=== PATIENT | female | born 1965 | race Caucasian/White ===

== ENCOUNTER 2020-06-22 10:31 | Outpatient (REF) | payer OTHER, SELFPAY ==
[2020-06-22 11:07] LABS: MANUAL DIFF FLAG NO
[2020-06-22 11:13] LABS: Glucose Urine UA NEG (NEG); Leukocyte Esterase Urine NEG (NEG); Nitrite Urine NEG (NEG); Urine Blood NEG (NEG); Urine Ketones NEG (NEG); Urine Protein NEG (NEG-TRACE)
[2020-06-22 11:16] LABS: Appearance Urine CLEAR; Color Urine YELLOW
[2020-06-22 11:20] LABS: Estimated Average Glucose 97 mg/dL; Hemoglobin A1C 114.9276 umol/L
[2020-06-22 11:33] LABS: Alanine Aminotransferase 13 U/L (0-31); Albumin Level 4.2 g/dL (3.5-5.0); Alkaline Phosphatase 89 U/L (39-117); Anion Gap 10 (12-20); Aspartate Amino Transferase 16 U/L (5-31); Bilirubin Total 0.4 mg/dL (0.0-1.0); Blood Urea Nitrogen 16 mg/dL (9-16); Calcium 9.3 mg/dL (8.4-10.2); Carbon Dioxide 29 mmol/L (22-29); Chloride 104 mmol/L (96-108); Cholesterol 180 mg/dL; Estimated Glomerular Filt Rate 52; Glucose Fasting 90 mg/dL (60-99); HDL Cholesterol 50 mg/dL; LDL Cholesterol Calculated 113 mg/dl; Potassium 4.5 mmol/l (3.3-5.1); Sodium 138 mmol/L (135-145); Total Protein 6.8 g/dL (6.5-8.0); Triglycerides 85 mg/dL
[2020-06-22 11:40] LABS: Basophils Percent Auto 0.6 % (0-2); Eosinophils Absolute Auto 0.3 X10*3/uL (0.0-0.4); Eosinophils Percent Auto 5.4 % (0-4); Hematocrit 42.2 % (37-47); Hemoglobin 13.8 g/dl (12.0-16.0); Imm Gran Abs Auto 0.01 X10*3/uL (0.00-0.03); Imm Gran Pct Auto 0.2 % (0.0-0.4); Lymphocytes Absolute Auto 1.2 X10*3/uL (1.2-4.9); Lymphocytes Percent Auto 22.4 % (20-40); Mean Corpuscular HGB Conc 32.7 g/dl (31.0-35.0); Mean Corpuscular Volume 94.8 fL (80-98); Mean Platelet Volume 9.8 fL (9.4-12.3); Monocytes Absolute Auto 0.4 X10*3/uL (0.1-1.2); Monocytes Percent Auto 7.1 % (2-11); Neutrophils Absolute Auto 3.5 X10*3/uL (2.0-8.3); Neutrophils Percent Auto 64.3 % (45-73); Platelet Count 271 X10*3/uL (160-400); Red Blood Count 4.45 X10*6/uL (4.20-5.50); Red Cell Distribution Width 12.5 % (11.0-16.0); White Blood Count 5.4 X10*3/uL (4.8-10.8)
[2020-06-22 11:44] LABS: Bacteria Urine TRACE /LPF; RBC Urine 0 /HPF (0); Squamous Epithelial Cell Urine 1+ /LPF; WBC Urine 0 /HPF (0-4)
[2020-06-22 11:55] LABS: Thyroid Stimulating Hormone 1.69 mIU/mL (0.32-4.0)
== END 2020-06-22 10:32 | disposition home or self-care (01) ==
LOC: HO.LAB 10:31
PROVIDERS: PCP Physician Assistant; Visit Provider Physician Assistant
DX: Z13.1 Encounter for screening for diabetes mellitus (principal); Z13.220 Encounter for screening for lipoid disorders; Z13.29 Encounter for screening for other suspected endocrine disorder
CPT/HCPCS: 36415; 80053; 80061; 81001; 83036; 84443; 85025

== ENCOUNTER → 2020-09-16 12:30 | Outpatient (BNVA) | payer OTHER, SELFPAY | PROVIDERS: PCP Physician Assistant; Visit Provider Orthopaedic Surgery | DX: Q74.0 Other congenital malformations of upper limb(s), including shoulder girdle (principal) | CPT/HCPCS: 99212 ==

== ENCOUNTER 2020-10-24 15:00 | Outpatient (RCR) | payer OTHER, SELFPAY ==
--- NOTE | 2020-08-09 08:39 | MHC.PT.EP ---
[facility] [place] Office [place] Office [address] Yarely Brock [address] [phone] F: [phone] F: [phone] F: [phone] F: [phone] Physical Therapy Plan of Care Date of Evaluation: 08/05/20 Date of Surgery: NA Diagnosis: L SHOULDER TENDONITIS Assessment: Pt IS 55 YO F REFERRED TO PT FROM [facility] WITH L SHLDER TENDONITIS. PRESENTS WITH SIGNIFICANT LIMITATION IN L SHLDER/UE ROM AND STRENGTH. Pt REPORTS HX OF DEFORMITY L UE WITH SURGERY PER DR ROB BECERRA WHEN SHE WAS 7 YO. Pt REPORTS HAS ALWAYS HAD SOME ISSUES WITH LIMITED ROM AND STRENGTH WITH L UE BUT WAS FUNCTIONAL UNTIL ABOUT 8 MONTHS AGO WHEN SHE BEGAN HAVING INCREASING DIFFICULTY USING L UE WITH INCREASING PAIN. HAD MRI OF L SHLDER IN 2018 WHICH SHOWED SIGNIF DEGENERATION/ARTHRITIC CHANGES IN THE SHLDER AND SURROUNDING TISSUE..MAY BENEFIT FROM A NEW MRI AND/OR ORTHO CONSULT FOR ASSIST IN TREATMENT PLANNING AND GOAL ATTENUATION Frequency and Duration: The patient will be seen 2X/WK X 6 WKS Short Term Goals: 1. INCREASED AWARENESS SHLDER CARE AND POSTURE 2. CENTRALIZE [employer] Goals: 1. INCREASED L SHLDER ROM 10-20 DEGREES FLEX AND ABD 2. DECREASED L SHLDER PAIN AT LEAS 50% WITH ADLS 3. I HEP WITH DC EX PLAN Treatment Plan: Modalities to reduce pain, spasms and effusion. Manual therapy to restore motion and function. Therapeutic exercise to improve strength and flexibility. Neuromuscular re-education for posture and balance. Therapeutic activities to return to functional activities of daily living. Please sign and return to therapist. Thank you for your referral.
--- NOTE | 2020-11-16 14:56 | MHC.PT.DC ---
[facility] [place] Office [place] Office [place] Office [address] Yarely Brock [address] [phone] F: [phone] F: [phone] F: [phone] F: [phone] Physical Therapy Discharge Report Diagnosis: L SHOULDER TENDONITIS Date of Surgery: NA Date of Evaluation: 08/05/20 Date of Discharge: 09/14/21 Treatments to Date: 11 Cancellations to Date: 0 No Shows to Date: 0 Discharge Status: Physician Discontinued Tx Recommend MD Follow-up Discharge Summary: Pt completed 11 visits of skilled PT to address her left shoulder pain. However, minimal improvements were made. She had a consult w/ [facility] who recommended no aggressive ROM of the shoulder and she was going to possibly receive a 2nd opinion from an orthopedic surgeon out of [place]. Trialed 6 iontophoresis treatments w/ dexamethasone as well. D/C PT @ this time. Electronically signed by: Erin Gomes PT, DPT Please sign and return to therapist. Thank you for your referral.
== END 2020-12-04 08:02 | disposition other institution (70) ==
LOC: HO.PT 15:00
PROVIDERS: PCP Physician Assistant; Visit Provider Physician Assistant
DX: M75.92 Shoulder lesion, unspecified, left shoulder (principal)
CPT/HCPCS: 97014; 97033; 97110; 97140; 97163

== ENCOUNTER 2020-12-17 16:26 | Outpatient (REF) | payer OTHER, SELFPAY ==
--- NOTE | ~2020-12-17 | CT_ITS ---
EXAMINATION: CT SHOULDER, LEFT CLINICAL INFORMATION: Osteoarthritis of the left glenohumeral joint COMPARISON: 03/15/2018 TECHNIQUE: Multidetector volumetric imaging of the left shoulder is performed without IV contrast. Coronal and sagittal reformatted images are obtained and reviewed. This CT examination was performed using dose optimization techniques as appropriate, variously including the following: *Automated exposure control *Adjustment of mA and/or kV according to patient size (this includes techniques or standardized protocols for targeted exams where dose is matched to indication/reason for exam; i.e. extremities or head) *Use of iterative reconstruction technique DLP: 432 mGy-cm FINDINGS: No acute fracture or dislocation. There is superior subluxation of the humeral head in relation to the glenoid. There is narrowing of the subacromial space, with approximately 0.4 cm of space. There is flattening of the humeral head with prominent osteophyte formation. Narrowing of the glenohumeral joint space with near [id number] appearance. There is also flattening of the glenoid with prominent sclerosis. Prominent osteophytes are present. Intra-articular body at the superior joint space measuring 0.7 cm as seen on series 5 image 106. The acromioclavicular joint is well aligned. The visualized ribs are intact, likely chronic healed left lateral rib fractures. The scapula is intact. The study is not tailored for evaluation of the rotator cuff. There is atrophy of the rotator cuff musculature, particularly the supraspinatus and subscapularis. This can be seen in the setting of chronic rotator cuff tear. The visualized left lung is clear. CT/CT shoulder LT wo con IMPRESSION: Severe arthritic changes of the left glenohumeral joint. Superior subluxation of the joint with narrowing of the subacromial space. Likely chronic rotator cuff tear.
== END 2020-12-17 16:27 | disposition home or self-care (01) ==
LOC: HO.CT 16:26
PROVIDERS: Visit Provider Orthopaedic Surgery
DX: M19.012 Primary osteoarthritis, left shoulder (principal)
CPT/HCPCS: 73200

== ENCOUNTER 2021-11-04 16:12 | Outpatient (REF) | payer OTHER, SELFPAY ==
--- NOTE | ~2021-11-04 | MM_ITS ---
EXAMINATION: MM SCREENING DIGITAL BREAST TOMOSYNTHESIS, BILATERAL CLINICAL INFORMATION: Screening. Asymptomatic. The lifetime risk of breast cancer based on the Tyrer-Cuzick Model is 6%. COMPARISON: Mammography: 03/09/2019, 12/23/2017, 07/30/2016 TECHNIQUE: Digital breast tomosynthesis is performed in both the craniocaudal and mediolateral oblique views along with computer-aided detection (CAD). Synthesized 2D images are generated from the tomosynthesis. Technologist notes patient study limitations on left related to shoulder composition limiting positioning on left MLO view. FINDINGS: The breasts are almost entirely fatty (ACR BI-RADS breast composition Category a). Background stromal and fibroglandular densities are similar to prior studies. No developing density or interval mass or architectural abnormality. No abnormal calcifications. No significant changes. MM/MM tomosynthesis screening BI IMPRESSION: No mammographic evidence of malignancy. Patient study limitations. ASSESSMENT: BI-RADS 2: Benign RECOMMENDATION: Routine annual mammography screening. This patient's information was entered into a reminder system with a target due date for their next mammogram.
== END 2021-11-04 16:13 | disposition home or self-care (01) ==
LOC: HO.MAMMO 16:12
PROVIDERS: Visit Provider Physician Assistant
DX: Z12.31 Encounter for screening mammogram for malignant neoplasm of breast (principal)
CPT/HCPCS: 77063; 77067

== ENCOUNTER 2021-12-20 08:53 | Outpatient (REF) | payer OTHER, SELFPAY ==
[2021-12-20 10:18] LABS: Hematocrit 42.7 % (37.0-47.0); Hemoglobin 13.9 g/dl (12.0-16.0); Mean Corpuscular HGB Conc 32.6 g/dl (31.0-35.0); Mean Corpuscular Hemoglobin 30.4 pg (27.0-33.0); Mean Corpuscular Volume 93.4 fL (80.0-98.0); Mean Platelet Volume 9.9 fL (9.4-12.3); Platelet Count 277 X10*3/uL (160-400); Red Blood Count 4.57 X10*6/uL (4.20-5.50); Red Cell Distribution Width 13.2 % (11.0-16.0); White Blood Count 6.3 X10*3/uL (4.8-10.8)
[2021-12-20 10:29] LABS: Estimated Average Glucose 103 mg/dL; Hemoglobin A1C 127.7709 umol/L; Hemoglobin A1c % 5.2 %
[2021-12-20 10:32] LABS: Alanine Aminotransferase 17 U/L (0-31); Alkaline Phosphatase 89 U/L (39-117); Anion Gap 12 (12-20); Aspartate Amino Transferase 16 U/L (5-31); Bilirubin Total 0.4 mg/dL (0.0-1.0); Blood Urea Nitrogen 14 mg/dL (9-16); Calcium 9.5 mg/dL (8.4-10.2); Carbon Dioxide 26 mmol/L (22-29); Chloride 108 mmol/L (96-108); Cholesterol 169 mg/dL; Estimated Glomerular Filt Rate 51; Glucose Fasting 100 mg/dL (60-99); HDL Cholesterol 48 mg/dL; LDL Cholesterol Calculated 107 mg/dl; Potassium 5.2 mmol/L (3.3-5.1); Sodium 141 mmol/L (135-145); Total Protein 6.7 g/dL (6.5-8.0); Triglycerides 71 mg/dL
[2021-12-20 10:53] LABS: TSH reflex Free T4 2.41 uIU/mL (0.32-4.0)
== END 2021-12-20 08:54 | disposition home or self-care (01) ==
LOC: HO.LAB 08:53
PROVIDERS: PCP Physician Assistant; Visit Provider Physician Assistant
DX: E78.2 Mixed hyperlipidemia (principal); E66.09 Other obesity due to excess calories; Z68.35 Body mass index [BMI] 35.0-35.9, adult; Z78.9 Other specified health status
CPT/HCPCS: 36415; 80053; 80061; 83036; 84443; 85027; 86787

== ENCOUNTER 2022-05-05 16:04 | Outpatient (REF) | payer OTHER, SELFPAY ==
[2022-05-05 16:55] LABS: Blood Urea Nitrogen 11 mg/dL (9-16); Estimated Glomerular Filt Rate > 60
== END 2022-05-05 16:05 | disposition home or self-care (01) ==
LOC: HO.LAB 16:04
PROVIDERS: PCP Physician Assistant; Visit Provider Physician Assistant
DX: Z01.812 Encounter for preprocedural laboratory examination (principal)
CPT/HCPCS: 36415; 82565; 84520

== ENCOUNTER 2022-05-07 15:47 | Outpatient (REF) | payer OTHER, SELFPAY ==
--- NOTE | ~2022-05-07 | CT_ITS ---
EXAMINATION: CT SOFT TISSUE NECK WITH CONTRAST CLINICAL INFORMATION: 57-year-old with feeling of something stuck in throat. COMPARISON: None TECHNIQUE: Following the intravenous administration of 60 mL of Omnipaque 350 intravenous contrast, helical imaging was performed in the axial plane with generation of coronal and sagittal reformatted images. This CT examination was performed using dose optimization techniques as appropriate, variously including the following: *Automated exposure control *Adjustment of mA and/or kV according to patient size (this includes techniques or standardized protocols for targeted exams where dose is matched to indication/reason for exam; i.e. extremities or head) *Use of iterative reconstruction technique DLP: 330 mGy-cm Skull Base: The bony skull base and visualized calvarium appear grossly intact.?Limited assessment of the visualized intracranial and orbital soft tissue structures is unrevealing.?The mastoids and middle ear cavities are unopacified. There is near-complete opacification of the right maxillary sinus with evidence of a previous right-sided medial maxillary fenestration which appears patent. Suprahyoid Neck: Nasopharynx, retropharynx, cattle shipper, and parapharyngeal spaces appear within normal limits. The major salivary glands are normal in morphology and attenuation. The oropharynx is smoothly contoured. The oral cavity and oropharynx appear to be coated with hyperdense material, consistent with ingested barium paste. The oral tongue, base of the tongue and floor of the mouth structures are symmetric and intact and enhance normally. Scattered small, normal-sized lymph nodes are seen in the submandibular and submental spaces and both IJ chains. Infrahyoid Neck: The vallecula, epiglottis, hypopharynx, and larynx appear within normal limits. The thyroid gland enhances normally. The tracheoesophageal grooves and retropharyngeal soft tissues appear unremarkable. There is some hyperdense material within the esophagus, consistent with the presence of ingested barium paste. No lymphadenopathy. A few nonenlarged lymph nodes are seen at level 4 and level 5B on the left. Vascular: There is normal opacification of the major arterial and venous structures in the neck. There is minimal calcified plaque at both carotid bulbs. Upper Chest: The visualized lung parenchyma and mediastinum are grossly unremarkable. Skeletal: Cervical DDD and spondylosis noted at C5-C6 and C6-C7. Multilevel cervical facet arthropathy noted. Degenerative changes at the left glenohumeral joint with cephalad subluxation of the left humeral head suggesting a left-sided rotator cuff tear. Other Comments: None. CT/CT soft tissue neck w con IMPRESSION: 1. No mass lesions or lymphadenopathy seen throughout the neck. 2. Barium EZ-paste is present throughout the oral cavity, oropharynx and esophagus which limits the evaluation for foreign bodies in these regions due to the uneven distribution of the barium material and the potential to mask hyperdense foreign bodies. Within these limitations, no radiopaque foreign bodies are seen throughout the aerodigestive tract. 3. Near-complete opacification of the right maxillary sinus with evidence of a previous right medial maxillary wall fenestration. 4. Severe degenerative change at the left glenohumeral joint with cephalad humeral head subluxation suggesting a significant left-sided rotator cuff tear. 5. Cervical degenerative changes.
[2022-05-07] MEDS: iohexoL 350 MG/ML 100 ML INFUS..BTL IV (16:40)
== END 2022-05-07 15:48 | disposition home or self-care (01) ==
LOC: HO.CT 15:47
PROVIDERS: PCP Physician Assistant; Visit Provider Otolaryngology
DX: R09.89 Other specified symptoms and signs involving the circulatory and respiratory systems (principal)
CPT/HCPCS: 70491; Q9967

== ENCOUNTER 2022-09-22 16:36 | Outpatient (REF) | payer OTHER, SELFPAY ==
[2022-09-22 18:01] LABS: Blood Urea Nitrogen 18 mg/dL (9-16); Estimated Glomerular Filt Rate > 60
== END 2022-09-22 16:37 | disposition home or self-care (01) ==
LOC: HO.LAB 16:36
PROVIDERS: PCP Physician Assistant; Visit Provider Otolaryngology
DX: Z01.818 Encounter for other preprocedural examination (principal)
CPT/HCPCS: 36415; 82565; 84520

== ENCOUNTER 2022-09-23 15:58 | Outpatient (REF) | payer OTHER, SELFPAY ==
--- NOTE | ~2022-09-23 | CT_ITS ---
EXAMINATION: CT SOFT TISSUE NECK WITH CONTRAST CLINICAL INFORMATION: Feeling foreign body of throat. COMPARISON: None TECHNIQUE: Following the administration of 100 mL of Omnipaque 300 intravenous contrast, helical imaging was performed in the axial plane with generation of coronal and sagittal reformatted images. This CT examination was performed using dose optimization techniques as appropriate, variously including the following: *Automated exposure control *Adjustment of mA and/or kV according to patient size (this includes techniques or standardized protocols for targeted exams where dose is matched to indication/reason for exam; i.e. extremities or head) *Use of iterative reconstruction technique DLP: 315 mGy-cm FINDINGS: The nasopharynx appears normal. There is no retropharyngeal adenopathy or collection. The pharyngeal and laryngeal contours appear normal. The vocal folds are symmetric. No foreign body is seen. There is no oral cavity lesion. The maxilla and mandible are edentulous. The parotid and submandibular glands appear normal. No enlarged cervical chain lymph nodes are seen. The thyroid gland appears normal. The major neck vessels are normally opacified. There is no consolidation in the upper lungs. No acute intracranial abnormality is seen. There is chronic complete opacification of the right maxillary sinus with partial atelectasis. The mastoids are clear. Multilevel degenerative changes are seen within the spine. There is mild to moderate spinal canal stenosis at C5-C6. Prominent anterior endplate osteophytes are seen at C6-C7. CT/CT soft tissue neck w IV con IMPRESSION: No neck mass or suspicious lymphadenopathy identified. No foreign body identified. Chronic opacification of the right maxillary sinus with partial atelectasis.
[2022-09-23] MEDS: iohexoL 350 MG/ML 100 ML INFUS..BTL IV (17:02)
== END 2022-09-23 15:59 | disposition home or self-care (01) ==
LOC: HO.CT 15:58
PROVIDERS: PCP Physician Assistant; Visit Provider Otolaryngology
DX: R09.89 Other specified symptoms and signs involving the circulatory and respiratory systems (principal)
CPT/HCPCS: 70491; Q9967

== ENCOUNTER 2023-05-04 14:27 | Outpatient (AMB) | payer OTHER, SELFPAY ==
[2023-05-04 14:28] VITALS: BP 136/74; PULSE 86; O2SAT 96
--- NOTE | 2023-05-04 14:28 | MHC.PC.OV ---
Vital Signs 05/04/23 14:28 Height 5 ft 5 in BP 136/74 Blood Pressure Location Rt brachial Position Sitting Pulse 86 Pulse Source Pulse Oximeter Pulse Oximetry (%) 96 Oxygen Delivery Method Room Air Intake Visit Reasons: Medication Follow Up Digital Data Analyst Required: No Allergies No Known Allergies Allergy (Verified 05/04/23 14:34) Tobacco use date assessed: 05/04/23 Dental Screening Dental Screen Date: 05/04/23 Did you have a dental visit in the last 12 months?: Yes Did you have a dental problem in the last 6 months where you did not have access to dental care?: No HPI HPI Comments History of Present Illness Details Patient is a 58 y/o, Patient has a pmhx significant for RADHA, HLD, 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 Patient of Luis Cabrera last seen 2 years ago presents today for follow-up. Patient states left shoulder pain for couple years with worsening left deltoid muscle tenderness. Patient reports unable to lift left arm overhead and has very limited range of motion.Pervious CT showed chronic rotator cuff tear. Patient previously seen by Dr. Soto in 2020 orthopedic for history of left shoulder anomaly status post pediatric surgery. Review of the notes patient did not want to proceed with injections at that time and did end up sending her to [facility] to see Dr. Greenberg to discuss surgical options, although give her age he did not feel there is a surgery that would benefit her. Patient states she was seen 1x and never heard back. Patient also reports bilateral knee pain, will order xrays to evaluate for possible athritis [facility] Surgical History History of appendectomy Status post excision of lipoma Family History Father Heart disease Past heart attack Mother Myocardial infarction Brother Myocardial infarction Son Scoliosis Social History Housing: House Alcohol intake: never Patient Tobacco Use Status: Former Tobacco user Quit Date: 2018 Tobacco use type: Cigarette e-Cigarette/Vaping Use: Never Used Second Hand Smoke Exposure: No Current occupational status: employed and unemployed Current occupation: right handed Cognitive needs: No Hearing needs: No Vision needs: No Questionnaire PHQ-9 Over the last 2 weeks, how often have you been bothered by any of the following problems? 1. Little interest or pleasure in doing things: not at all 2. Feeling down, depressed, or hopeless: not at all 3. Trouble falling or staying asleep, or sleeping too much: not at all 4. Feeling tired or having little energy: not at all 5. Poor appetite or overeating: not at all 6. Feeling bad about yourself - or that you are a failure or have let yourself or your family down: not at all 7. Trouble concentrating on things, such as reading the newspaper or watching television: not at all 8. Moving or speaking so slowly that other people could have noticed. Or the opposite - being so fidgety or restless that you have been moving around a lot more than usual: not at all 9. Thoughts that you would be better off or of hurting yourself in some way: not at all Total score: 0 Depression Screening Interpretation: Negative Source: Developed by Drs. Babar Rodriguez, Audelia Hernández, Nishant Silva and colleagues, with an educational cyril from [employer]. Thrive Questionnaire Date Thrive assessed: 05/04/23 I am a: Patient What is your living situation today?: I have a steady place to live Within the past 12 months, did the food you bought not last and you didn't have the money to get more?: Never true Within the past 12 months, did you worry whether your food would run out before you got money to buy more?: Never true Currently or been in a relationship where the following occur: no concerns reported AUDIT C Alcohol Use Questionnaire (AUDIT-C) 1. How often do you have a drink containing alcohol?: Monthly or less 2. How many drinks containing alcohol do you have on a typical day when you are drinking?: 1 or 2 3. How often do you have six or more drinks on one occasion?: Never Total Score: 1 RADHA-7 AMB Questionnaire RADHA-7 Date RADHA - 7 assessed: 05/04/23 Feeling nervous, anxious, or on edge: 0 = Not at all Not being able to stop or control worryin = Not at all Worrying too much about different things: 0 = Not at all Trouble relaxin = Not at all Being so restless that it is hard to sit still: 0 = Not at all Becoming easily annoyed or irritable: 0 = Not at all Feeling afraid as if something awful might happen: 0 = Not at all Total RADHA-7 score (0-4 normal; 5-9 mild; 10-14 moderate; 15-21 severe): 0 Source: Developed by Drs. Babar Rodriguez, Audelia Hernández, Nishant Silva and colleagues, with an educational cyril from [employer]. Review of Systems Const Denies chills, Denies fatigue, Denies fever(s) and Denies poor appetite Eyes Denies no additional complaints ENT Reports Normal hearing present Card Denies chest pain, Denies syncope, Denies rapid heart rate and Denies dyspnea Resp Denies cough and Denies dyspnea GI Denies change in stool character, Denies constipation, Denies diarrhea, Denies nausea and Denies vomiting Denies urinary frequency, Denies dysuria and Denies urinary urgency Musc Reports arthralgias (left shoulder pain ) Neuro Reports Normal hearing present, Denies confusion and Denies syncope Psych Denies confusion Endo Denies fatigue Physical exam (Primary Care) Vital Signs: Last Vital Signs Pulse 86 05/04/23 14:28 BP 136/74 05/04/23 14:28 Pulse Ox 96 05/04/23 14:28 Oxygen Delivery Method Room Air 05/04/23 14:28 Tobacco/Smoking Status: Tobacco use Status Tobacco use date assessed 05/04/23 05/04/23 14:29 Patient Tobacco Use Status Former Tobacco user 05/04/23 14:29 Tobacco use type Cigarette 05/04/23 14:29 e-Cigarette/Vaping Use Never Used 05/04/23 14:29 PHQ-9: PHQ-9 Score PHQ-9: Total score 0 05/04/23 14:41 Depression Screening Interpretation: Negative Thrive Assessment: Date of Thrive Assessment Date Thrive assessed 05/04/23 05/04/23 14:38 Currently or been in a relationship where the following occur: no concerns reported Const General: No confusion Orientation/consciousness: No confusion HENMT Head: Yes normocephalic and Yes atraumatic Eyes Conjunctivae: conjunctivae normal Chest Chest palpation & inspection: normal inspection of the chest Resp Effort & Inspection: normal respiratory effort Auscultation: clear to auscultation bilaterally, no crackles, no rhonchi and no wheezes Cardio Rate: regular rate Rhythm: regular rhythm Heart sounds: S1 normal heart sound present and S2 normal heart sound present GI Inspection: Yes normal to inspection Neuro General: No confusion Cranial nerves: Yes Normal hearing present Extrem General: No edema Right upper extremity: normal to inspection and full ROM Left upper extremity: normal to inspection, normal capillary refill and shoulder/upper arm Details: tenderness Location: over the biceps tendon and abnormal ROM Details: pain with active ROM and pain with passive ROM; no swelling, no ecchymosis and no unsual warmth Assessment and Plan Assessment & Plan (1) HTN (hypertension): Code(s): I10 - Essential (primary) hypertension Qualifiers: Hypertension type: primary hypertension Qualified Code(s): I10 - Essential (primary) hypertension Plan: Follow low salt diet and excercise. (2) HLD (hyperlipidemia): Code(s): E78.5 - Hyperlipidemia, unspecified Qualifiers: Hyperlipidemia type: mixed hyperlipidemia Qualified Code(s): E78.2 - Mixed hyperlipidemia Plan: Continue on atorvastatin. Follow low-cholesterol diet. 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 (4) Bilateral knee pain: Code(s): M25.561 - Pain in right knee; M25.562 - Pain in left knee Plan: Bilateral knee xrays ordered. Can take OTC tyleonol and ibuprofen as needed for pain Orders: Orders XR knee LT 2V 05/04/23 M25.561 - Pain in right knee, M25.562 - Pain in left knee VICKIE Peters XR knee RT 2V 05/04/23 M25.561 - Pain in right knee, M25.562 - Pain in left knee VICKIE Peters Referrals Orthopedics Referral Q74.0 - Other congenital malformations of upper limb(s), including shoulder girdle VICKIE Peters Gastroenterology Referral Z12.11 - Encounter for screening for malignant neoplasm of colon Issac Cabrera PA-C Coding Level of Care Code Est Pt Level 3 (66042) Diagnoses HTN (hypertension) I10 Hypertension type: primary hypertension HLD (hyperlipidemia) E78.2 Hyperlipidemia type: mixed hyperlipidemia 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
== END 2023-05-04 15:06 | disposition home or self-care (01) ==
PROVIDERS: PCP Physician Assistant; Visit Provider Nurse Practitioner Family
DX: I10 Essential (primary) hypertension (principal); E78.2 Mixed hyperlipidemia; Q74.0 Other congenital malformations of upper limb(s), including shoulder girdle; M25.561 Pain in right knee; M25.562 Pain in left knee
CPT/HCPCS: 99213

== ENCOUNTER 2023-06-03 12:25 | Outpatient (REF) | payer OTHER, SELFPAY ==
--- NOTE | ~2023-06-03 | XR_ITS ---
EXAMINATION: XR SHOULDER, LEFT CLINICAL INFORMATION: Reason for Exam M25.519 - Pain in unspecified shoulder COMPARISON: Shoulder radiographs 03/15/2018 TECHNIQUE: Two views of the shoulder. FINDINGS: No acute fracture or dislocation. Remote healed left rib fracture deformities. Advanced degenerative changes of the glenohumeral joint with complete loss of joint space and bony remodeling of the humeral head with flattening and bony remodeling of the acetabulum slightly progressed from prior. Soft tissues are unremarkable. XR/XR shoulder LT min 2V IMPRESSION: Advanced degenerative changes of the glenohumeral joint with complete loss of joint space and bony remodeling of the humeral head with flattening and bony remodeling of the acetabulum slightly progressed from prior.
== END 2023-06-03 12:26 | disposition home or self-care (01) ==
LOC: HO.HOSX 12:25
PROVIDERS: Visit Provider Orthopaedic Surgery
DX: Q74.0 Other congenital malformations of upper limb(s), including shoulder girdle (principal); M12.812 Other specific arthropathies, not elsewhere classified, left shoulder
CPT/HCPCS: 73030

== ENCOUNTER 2023-06-03 14:42 | Outpatient (AMB) | payer OTHER, SELFPAY ==
--- NOTE | 2023-06-03 15:04 | MHC.OFFVIS ---
Intake Vital Signs 06/03/23 15:05 Height 5 ft 5 in Intake Visit Reasons: OV - Left Shoulder Girdle Abnormality Intake Note: Antoinette is a 58 year old -- hand dominant female who presents today for a follow up of her left shoulder girdle abnormality. At her last visit in 2019 a referral to [place] to see Dr. Greenberg was discussed as well as possible reverse TSA but there was concern of weakness. She followed trhough with this referral and feels that she did not get much information, she was told that she has a very complex surgery she was told that it is possible she would have limited to no motion of the shoulder. She recently was seen at ENT and had a CT scan done Allergies No Known Allergies Allergy (Verified 06/03/23 15:05) HPI OV - Left Shoulder Girdle Abnormality HPI Details This is a 55-year-old woman with congenital abnormality of the left glenohumeral joint with consequent osteoarthritis and high riding humeral head with MRI showing atrophy of the rotator cuff. She saw Dr Greenberg as CAROLIN Gonzales and surgery was not recommended. She subsequently saw a ENT and was told she has a RTC tear. She is confused about this. She continues to have difficulty with reaching and pain in her biceps and shoulder. [facility] Medical History (Updated 06/04/23 @ 08:22 by Brice Soto MD) Rotator cuff arthropathy of left shoulder Surgical History Status post excision of lipoma History of appendectomy Family History Father Heart disease Past heart attack Mother Myocardial infarction Brother Myocardial infarction Son Scoliosis Social History Housing: House Alcohol intake: never Patient Tobacco Use Status: Former Tobacco user Quit Date: 2018 Tobacco use type: Cigarette e-Cigarette/Vaping Use: Never Used Second Hand Smoke Exposure: No Current occupational status: employed and unemployed Current occupation: right handed Cognitive needs: No Hearing needs: No Vision needs: No Physical Exam Extrem Other: left shoulder iwht 90-100 deg of forward flexion. No external rotation of LUE. 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: Code(s): Q74.0 - Other congenital malformations of upper limb(s), including shoulder girdle (2) Rotator cuff arthropathy of left shoulder: Code(s): M12.812 - Other specific arthropathies, not elsewhere classified, left shoulder Orders: Orders XR shoulder LT min 2V 06/03/23 M25.519 - Pain in unspecified shoulder Referrals Pain Management Referral M12.812 - Other specific arthropathies, not elsewhere classified, left shoulder, Q74.0 - Other congenital malformations of upper limb(s), including shoulder girdle Patient Instructions: 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 Surgery is high risk and , as she was told by Dr Greenberg, there is the possibility of catastrophic failure. I do not recommend this. I explained this to her and the role of the RTC in her pathology. I discussed injections but she is scared of needles. She may consider pain management but only in they put her to sleep before any injections. 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
== END 2023-06-03 15:21 | disposition home or self-care (01) ==
PROVIDERS: PCP Physician Assistant; Visit Provider Orthopaedic Surgery
DX: Q74.0 Other congenital malformations of upper limb(s), including shoulder girdle (principal); M12.812 Other specific arthropathies, not elsewhere classified, left shoulder
CPT/HCPCS: 99213

== ENCOUNTER 2023-06-03 15:27 | Outpatient (REF) | payer OTHER, SELFPAY ==
--- NOTE | ~2023-06-03 | XR_ITS ---
EXAMINATION: XR BILATERAL KNEES CLINICAL INFORMATION: Reason for Exam M25.561 - Pain in right knee COMPARISON: Knee radiographs 02/07/2018 TECHNIQUE: 2 views of the bilateral knees FINDINGS: RIGHT KNEE: No acute fracture or dislocation. Mild degenerative changes of the knee with quadriceps and patellar tendon enthesophytes. Small suprapatellar joint effusion. Soft tissues are unremarkable. LEFT KNEE: No acute fracture or dislocation. Mild degenerative changes of the knee with quadriceps and patellar tendon enthesopathy and small patellofemoral compartment osteophytes. No joint effusion. Soft tissues are unremarkable. XR/XR knee LT 2V IMPRESSION: * No acute osseous abnormality. * Mild degenerative changes of the bilateral knees. Small right suprapatellar joint effusion. No left joint effusion.
--- NOTE | ~2023-06-03 | XR_ITS ---
EXAMINATION: XR BILATERAL KNEES CLINICAL INFORMATION: Reason for Exam M25.561 - Pain in right knee COMPARISON: Knee radiographs 02/07/2018 TECHNIQUE: 2 views of the bilateral knees FINDINGS: RIGHT KNEE: No acute fracture or dislocation. Mild degenerative changes of the knee with quadriceps and patellar tendon enthesophytes. Small suprapatellar joint effusion. Soft tissues are unremarkable. LEFT KNEE: No acute fracture or dislocation. Mild degenerative changes of the knee with quadriceps and patellar tendon enthesopathy and small patellofemoral compartment osteophytes. No joint effusion. Soft tissues are unremarkable. XR/XR knee RT 2V IMPRESSION: * No acute osseous abnormality. * Mild degenerative changes of the bilateral knees. Small right suprapatellar joint effusion. No left joint effusion.
== END 2023-06-03 15:28 | disposition home or self-care (01) ==
LOC: HO.XRAY 15:27
PROVIDERS: PCP Physician Assistant; Visit Provider Nurse Practitioner Family
DX: M25.561 Pain in right knee (principal); M25.562 Pain in left knee
CPT/HCPCS: 73560

== ENCOUNTER 2023-07-26 14:21 | Outpatient (AMB) | payer OTHER, SELFPAY ==
[2023-07-26 14:25] VITALS: BP 141/61; PULSE 75; BMI 38.1
--- NOTE | 2023-07-26 14:25 | A.OFFVIS_ITS ---
Intake Vital Signs 07/26/23 14:25 Height 5 ft 5 in Weight 228 lb 13.437 oz BMI 38.1 BP 141/61 H Blood Pressure Location Rt brachial Position Sitting Pulse 75 Intake Visit Reasons: Colonoscopy Screening Intake Note: Patient presents to in office visit today as a new patient for colonoscopy screening. CC: Patient reports 2 episodes of rectal bleeding last year and one in June accompanied by excruciating abdominal pain. She states this last time she stared having a normal BM and then she kept going and it became diarrhea accompanied with blood and blood clots. 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 She has constipation Cramping that does resolve typically after BM Appetite is good She has had shoulder surgery and is concerned about positioning while having procedure No cardiac or respiratory issues No nausea, vomiting, hematemesis, hematochezia fever chills PFSH Medical History Rotator cuff arthropathy of left shoulder Surgical History Status post excision of lipoma History of appendectomy Family History Father Heart disease Past heart attack Mother Myocardial infarction Brother Myocardial infarction Son Scoliosis Social History Housing: House Alcohol intake: never Patient Tobacco Use Status: Former Tobacco user Quit Date: 2018 Tobacco use type: Cigarette e-Cigarette/Vaping Use: Never Used Second Hand Smoke Exposure: No Current occupational status: employed and unemployed Current occupation: right handed Cognitive needs: No Hearing needs: No Vision needs: No Review of Systems Const All systems reviewed & are unremarkable except as noted in HPI and below ENT Denies dysphagia and Denies odynophagia Card Denies chest pain and Denies dyspnea Resp Denies dyspnea GI Reports hematochezia, Reports constipation, Denies dysphagia, Denies dyspepsia, Denies heartburn, Denies diarrhea, Denies nausea, Denies odynophagia and Denies vomiting Psych Reports anxiety Physical Exam Vital Signs: Last Vital Signs Pulse 75 07/26/23 14:25 BP 141/61 H 07/26/23 14:25 BMI result Body Mass Index 38.1 Const General: cooperative, healthy appearing, comfortable and no acute distress Orientation/consciousness: patient oriented x3 Limitations: no limitations Eyes Sclerae: sclerae normal Resp Effort & Inspection: normal respiratory effort and able to speak in complete sentences Auscultation: clear to auscultation bilaterally, no rales, no rhonchi and no wheezes Cardio Rate: regular rate Rhythm: regular rhythm Heart sounds: S1 normal heart sound present and S2 normal heart sound present GI Palpation (GI): Soft to palpation and nontender Auscultation: normal bowel sounds Skin General skin exam: no rashes or lesions noted Neuro General: patient oriented x3 Extrem General: Yes full ROM Psych Mental Status: mental status grossly normal Speech and movement: Pressured speech present Affect: Anxious affect present Attitude: cooperative Thought process: Normal thought process present Thought content: Normal thought content present Insight: Good insight present (Psych) Judgement: Good judgement present (Psych) Assessment & Plan Assessment & Plan (1) Rectal bleeding: Comment: likely hemorrhoidal HFD rectal cream Code(s): K62.5 - Hemorrhage of anus and rectum Plan: HFD bowel regimen (2) Change in stool: Code(s): R19.5 - Other fecal abnormalities Plan: fiber (3) Rotator cuff arthropathy of left shoulder: Comment: Difficulty lying LEFT side Code(s): M12.812 - Other specific arthropathies, not elsewhere classified, left shoulder Plan: Difficulty lying LEFT side= reassure Plan Colonoscopy-positioning MiraLax Gatorade prep Maintain high-fiber diet Fiber supplement Orders: Orders Colonoscopy - GI Use Only 07/26/23 K62.5 - Hemorrhage of anus and rectum, M12.812 - Other specific arthropathies, not elsewhere classified, left shoulder, R19.5 - Other fecal abnormalities Medications: New bisacodyl (Dulcolax (bisacodyl)) Day before procedure, prep day Take 4 tablets by mouth upon awakening followed by large glass of water 20 mg (4 x 5 mg) PO ONCE 1 day 4 tabs 0RF colonoscopy prep Z12.11 - Encounter for screening for malignant neoplasm of colon polyethylene glycol 3350 (Miralax) Take as directed by mouth the day before your procedure. 238 grams PO ONCE 1 day PRN 238 grams 0RF laxative effect calcium polycarbophil (Fiber Laxative (calcium polycarbophil)) 1,250 mg (2 x 625 mg) PO DAILY 30 days 60 tabs 3RF hydrocortisone 2.5% (Proctozone-HC) apply SC BID prn 1 appl SC BID PRN 30 grams 3RF hemorrhoids Patient Instructions: Colonoscopy-positioning discussed reassured MiraLax Gatorade prep-reviewed, literature given Maintain high-fiber diet-menu choices Fiber supplement Avoid straining with hemorrhoids Hydrocortisone cream Discussed surgical referral declines at this time Coding Level of Care Code New Pt Level 3 (24594) Diagnoses Rectal bleeding K62.5 Change in stool R19.5 Rotator cuff arthropathy of left shoulder M12.812 Time Spent (min) 30
== END 2023-07-26 15:52 | disposition home or self-care (01) ==
PROVIDERS: PCP Physician Assistant; Visit Provider Physician Assistant
DX: K62.5 Hemorrhage of anus and rectum (principal); R19.5 Other fecal abnormalities; M12.812 Other specific arthropathies, not elsewhere classified, left shoulder
CPT/HCPCS: 99203

== ENCOUNTER → 2023-07-26 14:21 | Outpatient (BNVA) | payer OTHER, SELFPAY | PROVIDERS: PCP Physician Assistant; Visit Provider Physician Assistant | DX: K62.5 Hemorrhage of anus and rectum (principal); R19.5 Other fecal abnormalities; M12.812 Other specific arthropathies, not elsewhere classified, left shoulder | CPT/HCPCS: 99202 ==

== ENCOUNTER 2023-11-03 15:28 | Outpatient (AMB) | payer OTHER, SELFPAY ==
[2023-11-03 15:41] VITALS: BP 130/60; PULSE 69; O2SAT 95; BMI 37.8
--- NOTE | 2023-11-03 15:41 | A.OFFPC_ITS ---
Vital Signs 11/03/23 15:41 Height 5 ft 5 in Weight 227 lb BMI 37.8 BP 130/60 Blood Pressure Location Lt brachial Position Sitting Pulse 69 Pulse Source Pulse Oximeter Pulse Oximetry (%) 95 Oxygen Delivery Method Room Air Intake Visit Reasons: Med review Intake Note: The patient is here for a medication review. Today, her primary concern is experiencing sleepless nights and she would like a prescription to help her sleep. 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 Accompanied by: Self / Same As Patient Allergies No Known Allergies Allergy (Verified 11/03/23 16:00) Medication List - Last Reconciled 11/03/23 by Issac Cabrera PA-C atorvastatin 10 mg PO DAILY bisacodyl (Dulcolax (bisacodyl)) 20 mg (4 x 5 mg) PO ONCE 1 day blood pressure test kit-large As directed bupropion HCl 150 mg PO BID 90 days calcium polycarbophil (Fiber Laxative (calcium polycarbophil)) 1,250 mg (2 x 625 mg) PO DAILY 30 days cholecalciferol (vitamin D3) (Vitamin D3) 50 mcg PO DAILY hydrocortisone 2.5% (Proctozone-HC) 1 appl SC BID PRN multivitamin 1 tab PO DAILY polyethylene glycol 3350 (Miralax) 238 grams PO ONCE PRN 1 day Tobacco use date assessed: 11/03/23 HPI Med review HPI Details Patient is a 58 y/o here today for af or a followup visit. 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 .. Hyperlipidemia: Lipid panels have been stable, continues on low potency statin. Will recheck fasting lipid panel to assure appropriate total cholesterol and LDL. .. Generalized anxiety/major depressive disorder: For the most part has been anxiety and depression fairly well controlled on current dose of bupropion. Does have some situational anxiety as of late due to some family issues. She is interested in restarting hydroxyzine for sleep as she has been having trouble sleeping. Congenital left shoulder malformation: Has had MRI for her left shoulder showing high riding humoral head. She has seen patient support specialist whom does not believe surgical treatment will help overall. Did have 2nd opinion in [facility] and has gotten CT imaging of left shoulder showing severe osteoarthritis and high subluxation of the joint. She is awaiting a call back from was started orthopedic on whether or not they can help her with a shoulder replacement. .. Obesity:? She does understand her BMI is over 30 and will try to be more physically active and adapt to better eating habits to reduce her weight. .. Colon cancer screening: Has upcoming appointment for colonoscopy. Of note she does report few episodes of bright red blood per rectum Laboratory Tests 06/22/20 10:50 Hemoglobin A1c % 5.0 Cholesterol 180 LDL Cholesterol, C alc 113 TSH 1.69 [facility] Medical History Rotator cuff arthropathy of left shoulder Surgical History Status post excision of lipoma History of appendectomy Family History Father Heart disease Past heart attack Mother Myocardial infarction Brother Myocardial infarction Son Scoliosis Social History Housing: House Alcohol intake: never Patient Tobacco Use Status: Former Tobacco user Quit Date: 2018 Tobacco use type: Cigarette e-Cigarette/Vaping Use: Never Used Second Hand Smoke Exposure: No Current occupational status: employed and unemployed Current occupation: right handed Cognitive needs: No Hearing needs: No Vision needs: No Questionnaire PHQ-9 Over the last 2 weeks, how often have you been bothered by any of the following problems? 1. Little interest or pleasure in doing things: not at all 2. Feeling down, depressed, or hopeless: not at all 3. Trouble falling or staying asleep, or sleeping too much: not at all 4. Feeling tired or having little energy: not at all 5. Poor appetite or overeating: not at all 6. Feeling bad about yourself - or that you are a failure or have let yourself or your family down: not at all 7. Trouble concentrating on things, such as reading the newspaper or watching television: not at all 8. Moving or speaking so slowly that other people could have noticed. Or the opposite - being so fidgety or restless that you have been moving around a lot more than usual: not at all 9. Thoughts that you would be better off or of hurting yourself in some way: not at all Total score: 0 Depression Screening Interpretation: Negative Depression Screening Done: Yes 95172 - PHQ-9 Billing: Yes Source: Developed by Drs. Babar Rodriguez, Audelia Hernández, Nishant Silva and colleagues, with an educational cyril from [employer]. Thrive Questionnaire Date Thrive assessed: 11/03/23 I am a: Patient What is your living situation today?: I have a steady place to live Within the past 12 months, did the food you bought not last and you didn't have the money to get more?: Never true Within the past 12 months, did you worry whether your food would run out before you got money to buy more?: Never true Do you have trouble paying for medicines?: No Do you have trouble getting transportation to medical appointments?: No Do you have trouble paying your heating and electricity bill?: No Do you have trouble taking care of your child, family member or friend?: No Do you have trouble with day-to-day activities such as bathing, preparing meals, shopping, managing finances, etc.?: No Are you currently unemployed and looking for a job?: No Are you interested in more education?: No Please select the resources that you would like help with: None Currently or been in a relationship where the following occur: no concerns reported THRIVE Score: 0 AUDIT C Alcohol Use Questionnaire (AUDIT-C) 1. How often do you have a drink containing alcohol?: Monthly or less 2. How many drinks containing alcohol do you have on a typical day when you are drinking?: 1 or 2 3. How often do you have six or more drinks on one occasion?: Never Total Score: 1 RADHA-7 AMB Questionnaire RADHA-7 Date RADHA - 7 assessed: 11/03/23 Feeling nervous, anxious, or on edge: 0 = Not at all Not being able to stop or control worryin = Not at all Worrying too much about different things: 0 = Not at all Trouble relaxin = Not at all Being so restless that it is hard to sit still: 0 = Not at all Becoming easily annoyed or irritable: 0 = Not at all Feeling afraid as if something awful might happen: 0 = Not at all Total RADHA-7 score (0-4 normal; 5-9 mild; 10-14 moderate; 15-21 severe): 0 Source: Developed by Drs. Babar Rodriguez, Audelia Hernández, Nishant Silva and colleagues, with an educational cyril from [employer]. RADHA-7 Assessment Billing RADHA-7 Assessment Tool: RADHA-7 Assessment 85633 Review of Systems Const Denies headache(s) Eyes Denies loss of vision ENT Denies vertigo, Denies dizziness, Denies headache(s) and Denies sore throat Card Denies chest pain, Denies leg edema and Denies lightheadedness Resp Denies cough, Denies hemoptysis and Denies wheezing GI Denies abdominal pain, Denies melena, Denies constipation, Denies diarrhea and Denies vomiting Denies urinary frequency, Denies dysuria and Denies urinary urgency Musc Denies arthralgias, Denies joint swelling, Denies numbness and Denies tingling Neuro Denies Abnormal speech present, Denies behavioral changes, Denies vertigo, Denies dizziness, Denies headache(s), Denies loss of vision, Denies memory loss, Denies numbness and Denies tingling Psych Denies anxiety, Denies behavioral changes, Denies depression, Denies memory loss and Denies panic attacks Yimi/Lymph Denies easy bleeding and Denies easy bruising Aller/Immun Denies wheezing Physical exam (Primary Care) Vital Signs: Last Vital Signs Pulse 69 11/03/23 15:41 BP 130/60 11/03/23 15:41 Pulse Ox 95 11/03/23 15:41 Oxygen Delivery Method Room Air 11/03/23 15:41 BMI result Body Mass Index 37.8 BMI Assessment/Plan discussion: High Tobacco/Smoking Status: Tobacco use Status Tobacco use date assessed 11/03/23 11/03/23 15:51 Patient Tobacco Use Status Former Tobacco user 11/03/23 15:41 Tobacco use type Cigarette 11/03/23 15:41 e-Cigarette/Vaping Use Never Used 11/03/23 15:41 PHQ-9: PHQ-9 Score PHQ-9: Total score 0 11/03/23 16:02 Depression Screening Interpretation: Negative Thrive Assessment: Date of Thrive Assessment Date Thrive assessed 11/03/23 11/03/23 15:51 Currently or been in a relationship where the following occur: no concerns reported Const Other: Obese General: healthy appearing, no acute distress, alert and awake Nutritional Appearance: well nourished Orientation/consciousness: oriented to person, oriented to place and oriented to time HENMT Ears: TM's normal bilaterally General nose exam: Normal nasal mucous membranes and turbinates present Eyes Conjunctivae: conjunctivae normal Sclerae: sclerae normal Pupils: Equal, round and reactive pupils present Neck Neck: Yes no lymphadenopathy and Yes no JVD Thyroid: Thyroid normal Carotids: no bruits Resp Effort & Inspection: normal respiratory effort and not tachypneic Auscultation: no crackles, no rales, no rhonchi and no wheezes Cardio Rate: regular rate Rhythm: regular rhythm Heart sounds: no murmurs and normal S1 and S2 GI Palpation (GI): Soft to palpation, nontender, no hepatomegaly and no splenomegaly Auscultation: normal bowel sounds Skin General skin exam: no rashes or lesions noted and dry skin Neuro General: oriented to person, oriented to place and oriented to time Cranial nerves: Yes Equal, round and reactive pupils present Speech: No Abnormal speech present Gait exam (Neuro): Normal gait present Motor exam (neuro): no tremor noted Extrem Right upper extremity: full ROM Left upper extremity: full ROM Right lower extremity: full ROM; no edema Left lower extremity: full ROM; no edema Psych Mental Status: mental status grossly normal Speech and movement: Normal speech and movement present Affect: normal affect Attitude: cooperative Thought process: Normal thought process present Assessment and Plan Assessment & Plan (1) HTN (hypertension): Code(s): I10 - Essential (primary) hypertension Qualifiers: Hypertension type: primary hypertension Qualified Code(s): I10 - Es sential (primary) hypertension Plan: Patient's blood pressure acceptable today in office. She has been able to manage her blood pressure with lifestyle modifications. Goal blood pressures to remain below 140/90 Follow low salt diet and excercise. (2) HLD (hyperlipidemia): Code(s): E78.5 - Hyperlipidemia, unspecified Qualifiers: Hyperlipidemia type: mixed hyperlipidemia Qualified Code(s): E78.2 - Mixed hyperlipidemia Plan: Continue on atorvastatin. Goal LDL to remain below 130 Follow low-cholesterol diet. 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 use of uxow-yfo-ucpphyc analgesics. (4) RADHA (generalized anxiety disorder): Code(s): F41.1 - Generalized anxiety disorder Plan: Patient does report increase situational anxiety recently due to family issues. She has been having trouble sleeping and would like to restart hydroxyzine before bed to help her sleep. (5) Obese: Code(s): E66.9 - Obesity, unspecified Qualifiers: Obesity type: due to excess calories Obesity classification: adult class 2 (BMI 35 - 39.9) Serious obesity comorbidity presence: without serious comorbidity Body mass index: BMI 37.0-37.9 Qualified Code(s): E66.09 - Other obesity due to excess calories; Z68.37 - Body mass index [BMI] 37.0-37.9, adult Plan: Patient does understand her BMI is over 30 will work on trying to be more physically active and adapting to better eating habits to reduce her weight Orders: Orders Lipid Panel 11/03/23 E78.2 - Mixed hyperlipidemia Comprehensive [place]. Panel Fast 11/03/23 E78.2 - Mixed hyperlipidemia Microalbumin, Random (w Creat) 11/03/23 I10 - Essential (primary) hypertension Medications: New hydroxyzine HCl 50 mg (2 x 25 mg) PO BEDTIME 30 days 60 tabs 1RF F41.1 - Generalized anxiety disorder Refilled bupropion HCl 150 mg PO BID 90 days 180 tabs 1RF F41.1 - Generalized anxiety disorder atorvastatin 10 mg PO DAILY 90 tabs 2RF E78.5 - Hyperlipidemia, unspecified Coding Level of Care Code Est Pt Level 4 (21663) Diagnoses Primary hypertension I10 Hypertension type: primary hypertension Mixed hyperlipidemia E78.2 Hyperlipidemia type: mixed hyperlipidemia 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
== END 2023-11-03 16:25 | disposition home or self-care (01) ==
PROVIDERS: PCP Physician Assistant; Visit Provider Physician Assistant
DX: I10 Essential (primary) hypertension (principal); E78.2 Mixed hyperlipidemia; Q74.0 Other congenital malformations of upper limb(s), including shoulder girdle; F41.1 Generalized anxiety disorder; E66.09 Other obesity due to excess calories; Z68.37 Body mass index [BMI] 37.0-37.9, adult
CPT/HCPCS: 99214

== ENCOUNTER 2023-12-16 11:57 | Day surgery (SDC) | payer OTHER, SELFPAY ==
--- NOTE | 2023-12-15 10:10 | HO.ANESPROP2 ---
Documented by User: Eliza Mcleod NP 12/15/23 10:11 HPI - Anesthesia Eval Consult details Narrative: 58yo F for Upper Endoscopy and Colonoscopy PMFSH Active Problems Active Problems: All Active Problems (Updated 11/04/23 @ 07:43 by Issac Cabrera PA-C) Change in stool (Acute) Rectal bleeding (Acute) Pain in both knees (Acute) Rotator cuff arthropathy of left shoulder (Acute) HTN (hypertension) (Acute) Globus sensation (Acute) Varicella vaccination status unknown (Acute) Annual physical exam (Acute) Hair thinning (Acute) Breast cancer screening (Acute) Colon cancer screening (Acute) Allergic rhinitis (Acute) Breast cancer screening (Acute) Obese (Acute) 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 (Acute) Annual physical exam (Acute) RADHA (generalized anxiety disorder) (Acute) HLD (hyperlipidemia) (Acute) Tendinopathy of left shoulder (Acute) Past Medical History Medical History Arthritis Elevated cholesterol Rotator cuff arthropathy of left shoulder Family History Family History Father Heart disease Past heart attack Mother Myocardial infarction Brother Myocardial infarction Son Scoliosis Surgical History Surgical History Hx of shoulder surgery History of carpal tunnel surgery of right wrist Status post excision of lipoma History of appendectomy Social History Social History Housing: House Alcohol intake: never Patient Tobacco Use Status: Former Tobacco user Quit Date: 2018 Tobacco use type: Cigarette e-Cigarette/Vaping Use: Never Used Second Hand Smoke Exposure: No Use of substances other than those prescribed or required for medical reasons: No Are you DNR?: No Advance Directives: No Advance Directives Information Provided: Yes Current occupational status: employed and unemployed Current occupation: right handed Cognitive needs: No Hearing needs: No Vision needs: No Meds Allergies Allergy/AdvReac Type Severity Reaction Status Date / Time No Known Allergies Allergy Verified 12/16/23 12:20 Home Medications Medication Instructions Recorded Confirmed Last Taken Type multivitamin 1 tab PO DAILY 07/26/23 12/16/23 Unknown History Assessment and Plan Assessment Anesthesia Assessment: Chart Reviewed Documented by User: Chastity Felix MD 12/16/23 13:10 PMF Past Medical History Medical History Arthritis Elevated cholesterol Rotator cuff arthropathy of left shoulder Family History Family History Father Heart disease Past heart attack Mother Myocardial infarction Brother Myocardial infarction Son Scoliosis Family history of problems with anesthesia: No Surgical History Surgical History Hx of shoulder surgery History of carpal tunnel surgery of right wrist Status post excision of lipoma History of appendectomy History of Problems with Anesthesia: No Social History Social History Housing: House Alcohol intake: never Patient Tobacco Use Status: Former Tobacco user Quit Date: 2018 Tobacco use type: Cigarette e-Cigarette/Vaping Use: Never Used Second Hand Smoke Exposure: No Use of substances other than those prescribed or required for medical reasons: No Are you DNR?: No Advance Directives: No Advance Directives Information Provided: Yes Current occupational status: employed and unemployed Current occupation: right handed Cognitive needs: No Hearing needs: No Vision needs: No Meds Allergies Allergy/AdvReac Type Severity Reaction Status Date / Time No Known Allergies Allergy Verified 12/16/23 12:20 Home Medications Medication Instructions Recorded Confirmed Last Taken Type multivitamin 1 tab PO DAILY 07/26/23 12/16/23 Unknown History Exam Airway Mallampati Class: III TM Dist: >3cm Neck ROM: Full Heart: RRR Lungs: CTA Assessment and Plan Assessment Anesthesia Assessment: Anesthesia Plan Discussed Final Anesthetic Review Family History of Problems with Anesthesia: No History of Problems with Anesthesia: No NPO: Yes ASA Class: II and III Final Preanesthetic Review: Meds/Allgs Chart Reviewed, Consent Obtained/Reviewed and Anes Risks/Benef Reviewed Patient Risk: Intermediate Procedure Risk: Low Anesthetic Plan Anesthetic Plan: MAC: Disposition: Standard PACU
[2023-12-16 12:20] VITALS: BMI 37.1
[2023-12-16 12:30] VITALS: BP 141/6; PULSE 75; RESP 16; TEMP 36.6; O2SAT 98
[2023-12-16] MEDS: Lactated Ringers 1,000 ML 100 ML IVCONT (12:52)
--- NOTE | 2023-12-16 13:10 | P.CONAN_ITS ---
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) Annual physical exam (Acute) RADHA (generalized anxiety disorder) (Acute) HLD (hyperlipidemia) (Acute) Tendinopathy of left shoulder (Acute) Rotator cuff arthropathy of left shoulder (Acute) Past Medical History Medical History Arthritis Elevated cholesterol Rotator cuff arthropathy of left shoulder Family History Family History Father Heart disease Past heart attack Mother Myocardial infarction Brother Myocardial infarction Son Scoliosis Family history of problems with anesthesia: No Surgical History Surgical History Hx of shoulder surgery History of carpal tunnel surgery of right wrist Status post excision of lipoma History of appendectomy History of Problems with Anesthesia: No Social History Social History Housing: House Alcohol intake: never Patient Tobacco Use Status: Former Tobacco user Quit Date: 2018 Tobacco use type: Cigarette e-Cigarette/Vaping Use: Never Used Second Hand Smoke Exposure: No Use of substances other than those prescribed or required for medical reasons: No Are you DNR?: No Advance Directives: No Advance Directives Information Provided: Yes Current occupational status: employed and unemployed Current occupation: right handed Cognitive needs: No Hearing needs: No Vision needs: No Meds Allergies Allergy/AdvReac Type Severity Reaction Status Date / Time No Known Allergies Allergy Verified 12/16/23 12:20 Active Medications: Current Medications Lactated Ringer's (Lr) 1,000 mls @ 100 mls/hr IVCONT .Q10H LUIS FERNANDO Last Admin: 12/16/23 12:52 Dose: 100 mls/hr Home Medications Medication Instructions Recorded Confirmed Last Taken Type multivitamin 1 tab PO DAILY 07/26/23 12/16/23 Unknown History Exam Height,Weight and Vital Signs: Height 5 ft 6 in Weight 104.326 kg Last Vital Signs Temp 97.8 F 12/16/23 12:30 Pulse 75 12/16/23 12:30 Resp 16 12/16/23 12:30 BP 141/6 H 12/16/23 12:30 Pulse Ox 98 12/16/23 12:30 O2 Del Method Room Air 12/16/23 12:30 Airway Mallampati Class: III TM Dist: >3cm Neck ROM: Full Heart: RRR Lungs: CTA Assessment and Plan Assessment Anesthesia Assessment: Anesthesia Plan Discussed Final Anesthetic Review Family History of Problems with Anesthesia: No History of Problems with Anesthesia: No ASA Class: III Final Preanesthetic Review: Meds/Allgs Chart Reviewed, Consent Obtained/Reviewed and Anes Risks/Benef Reviewed Patient Risk: Intermediate Procedure Risk: Low Anesthetic Plan Anesthetic Plan: MAC: and Epidural Disposition: Standard PACU
--- NOTE | 2023-12-16 14:18 | MHC.SHP ---
Pre-Procedural Eval Section A - 24 Hr Update-Section A only Date of Service: 12/16/23 Section B - Complete if H&P > 30 days Chief Complaint: GERD, rectal bleeding Details of Present Illness: Rotator cuff arthropathy of left shoulder Surgical History Status post excision of lipoma History of appendectomy Present Medications: see Short Stay Collaborative assessment Allergies: Allergies Allergy/AdvReac Type Severity Reaction Status Date / Time No Known Allergies Allergy Verified 12/16/23 12:20 Review of Systems Review of Systems Comment: Ten point ROS as previously documented Exam Exam Comment: Gen appear: No acute distress HEENT: no icterus Chest: No overt resp distress Abd: soft, nontender, nondistended Psych: Stable affect, answering questions appropriately Neuro: A/Ox3 noted to move all extremities spontaneously Ext: no peripheral edema Plan Diagnosis/Plan: Unchanged I have reviewed the history and physical and performed a pertinent physical examination on my patient. No changes have occurred unless specified. Time Spent With Patient Time: Total time managing care of this patient today ____ minutes.
--- NOTE | 2023-12-16 14:21 | P.OP_ITS ---
Operative Note Operative Note Date of Service: 12/16/23 Narrative: Procedure: Esophagogastroduodenoscopy and colonoscopy Endoscopist: Sonia Whyte MD Indication: GERD, rectal bleeding Anesthesia Provider: Dr Chastity Vance Anesthesia Type: MAC Instrument: Olympus GIF-H190 and PCF-H190L ?? EGD Procedure:?? The procedure, indications, preparation and potential complications were reviewed with the patient, who indicated understanding and gave written informed consent to proceed. A physical exam was performed. The endoscope was introduced through the mouth, and advanced to the duodenum. The mucosa was carefully examined on slow withdrawal of the endoscope. The patient tolerated the procedure well. There were no immediate complications.? ? EGD Findings:? * Esophagus:? Localized patch of heterotopic gastric mucosa was noted in the upper esophagus. Linear ulcerations at the GEJ measuring up to 1 cm and crossing mucosal folds. The Z line was at 38 cm. * Stomach:? Multiple erosions and ulcers with clean base noted in the body and antrum. No active bleeding noted but scant heme present in stomach. Cold forceps biopsies were taken for histology. Retroflexion was performed in the cardia. * Duodenum:? Erythema and erosions in the duodenal bulb and sweep. 2nd portion of duodenum appeared normal. Colonoscopy Procedure: The patient was then turned for the colonoscopy. A digital rectal exam was performed which was abnormal due to finding of large ext hemorrhoids. A distal attachment cap was affixed to the tip of the colonoscope which was then inserted through the anus and advanced through the colon to the cecum at 70 cm and terminal ileum. Mucosa was carefully examined under high definition white light as the instrument was slowly withdrawn in a retrograde panoramic fashion. Re troflexion was performed in rectum. The procedure was not difficult. There were no immediate obvious complications. The quality of the prep was BBPS: 2+3+2 = adequate Withdrawal time 9 minutes. Limitations: No limitations. Findings: Mucosa: Normal to cecum and terminal ileum. Protruding lesions: * Large internal hemorrhoids without stigmata of recent bleeding. Excavated lesions: * Severe diverticulosis of the left colon Impression: * Inlet patch * Grade C esophagitis * Gastritis * Gastric ulcers * Duodenitis * Normal colon and terminal ileum mucosa * Diverticulosis * Internal and external hemorrhoids Recommendations * Follow biopsy results. Our office will call or send a letter with results within 7-10 days. * A gastrin level is being sent out today (pt already fasting for procedures and not on PPI) * Start Omeprazole 20mg BID x 8 weeks and then once daily * Avoid NSAIDs and smoking * Repeat EGD in 2-3 months to ensure healing of esophagitis and gastric ulcers * Repeat colonoscopy in 10 years for asymptomatic colorectal cancer screening
--- NOTE | 2023-12-16 14:30 | HO.ANESPROP2 ---
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) Annual physical exam (Acute) RADHA (generalized anxiety disorder) (Acute) HLD (hyperlipidemia) (Acute) Tendinopathy of left shoulder (Acute) Rotator cuff arthropathy of left shoulder (Acute) Past Medical History Medical History (Updated 12/16/23 @ 14:15 by Suzanne Peng, RN) Depression Arthritis Elevated cholesterol Rotator cuff arthropathy of left shoulder Family History Family History Father Heart disease Past heart attack Mother Myocardial infarction Brother Myocardial infarction Son Scoliosis Family history of problems with anesthesia: No Surgical History Surgical History Hx of shoulder surgery History of carpal tunnel surgery of right wrist Status post excision of lipoma History of appendectomy History of Problems with Anesthesia: No Social History Social History Housing: House Alcohol intake: never Patient Tobacco Use Status: Former Tobacco user Quit Date: 2018 Tobacco use type: Cigarette e-Cigarette/Vaping Use: Never Used Second Hand Smoke Exposure: No Use of substances other than those prescribed or required for medical reasons: No Are you DNR?: No Advance Directives: No Advance Directives Information Provided: Yes Current occupational status: employed and unemployed Current occupation: right handed Cognitive needs: No Hearing needs: No Vision needs: No Meds Allergies Allergy/AdvReac Type Severity Reaction Status Date / Time No Known Allergies Allergy Verified 12/16/23 12:20 Active Medications: Current Medications Lactated Ringer's (Lr) 1,000 mls @ 100 mls/hr IVCONT .Q10H LUIS FERNANDO Last Admin: 12/16/23 12:52 Dose: 100 mls/hr Home Medications Medication Instructions Recorded Confirmed Last Taken Type multivitamin 1 tab PO DAILY 07/26/23 12/16/23 Unknown History Exam Height,Weight and Vital Signs: Height 5 ft 6 in Weight 104.326 kg Last Vital Signs Temp 97.8 F 12/16/23 12:30 Pulse 75 12/16/23 12:30 Resp 16 12/16/23 12:30 BP 141/6 H 12/16/23 12:30 Pulse Ox 98 12/16/23 12:30 O2 Del Method Room Air 12/16/23 12:30 Assessment and Plan Assessment Anesthesia Assessment: Anesthesia Plan Discussed Final Anesthetic Review Family History of Problems with Anesthesia: No History of Problems with Anesthesia: No ASA Class: III Final Preanesthetic Review: Meds/Allgs Chart Reviewed, Consent Obtained/Reviewed and Anes Risks/Benef Reviewed Patient Risk: Intermediate Procedure Risk: Low Anesthetic Plan Anesthetic Plan: MAC: Disposition: Standard PACU
[2023-12-16 15:10] VITALS: BP 105/54; PULSE 75; RESP 12; TEMP 36.1; O2SAT 100
[2023-12-16 15:25] VITALS: BP 121/63; PULSE 70; RESP 18; O2SAT 97
[2023-12-16 15:40] VITALS: BP 105/64; PULSE 73; RESP 18; TEMP 36.2; O2SAT 97
[2023-12-23 15:09] LABS: Gastrin <15 pg/mL (<=100)
== END 2023-12-16 15:50 | disposition home or self-care (01) ==
PROVIDERS: PCP Physician Assistant; Visit Provider Internal Medicine
PROC: (CPT 45378; principal; 2023-12-16 13:40)
DX: K62.5 Hemorrhage of anus and rectum (principal); R19.5 Other fecal abnormalities; R19.4 Change in bowel habit; K57.30 Diverticulosis of large intestine without perforation or abscess without bleeding; K64.8 Other hemorrhoids; K64.4 Residual hemorrhoidal skin tags; K59.00 Constipation, unspecified; K21.9 Gastro-esophageal reflux disease without esophagitis; K29.50 Unspecified chronic gastritis without bleeding; K28.9 Gastrojejunal ulcer, unspecified as acute or chronic, without hemorrhage or perforation; K20.80 Other esophagitis without bleeding; K29.80 Duodenitis without bleeding; K44.9 Diaphragmatic hernia without obstruction or gangrene; Q39.8 Other congenital malformations of esophagus; I10 Essential (primary) hypertension; E78.00 Pure hypercholesterolemia, unspecified; M12.812 Other specific arthropathies, not elsewhere classified, left shoulder; F32.A Depression, unspecified; Z79.899 Other long term (current) drug therapy; Z98.890 Other specified postprocedural states; Z87.891 Personal history of nicotine dependence
CPT/HCPCS: 45378; 43239; 36415; 82941; 88305; 88313; 88342; J2704

== ENCOUNTER → 2023-12-16 11:57 | Outpatient (BNV) | payer OTHER, SELFPAY | PROVIDERS: PCP Physician Assistant; Visit Provider Internal Medicine | DX: K62.5 Hemorrhage of anus and rectum (principal); K64.8 Other hemorrhoids; K21.00 Gastro-esophageal reflux disease with esophagitis, without bleeding; K22.89 Other specified disease of esophagus; K25.9 Gastric ulcer, unspecified as acute or chronic, without hemorrhage or perforation; K29.80 Duodenitis without bleeding | CPT/HCPCS: 43239; 45378 ==

== ENCOUNTER 2024-01-13 10:31 | Outpatient (AMB) | payer OTHER, SELFPAY ==
--- NOTE | 2024-01-13 10:48 | A.OFFVIS_ITS ---
Vital Signs 01/13/24 10:51 Height 5 ft 6 in Weight 227 lb BMI 36.6 BP 131/66 Blood Pressure Location Lt brachial Position Sitting Pulse 73 Intake Visit Reasons: s/p egd/colon bello Intake Note: Antoinette presents in the office as a follow up egd and colo. CC: She states that today and yesterday she is having bad days with having bowel movements - she is having diarrhea. She has to take the bus but it is difficult and it could be something she ate. She has cramps in her stomach befor the bowel movements. Cheese Tester Required: No Allergies No Known Allergies Allergy (Verified 01/13/24 10:49) HPI Comments Details: A 58 y/o female f/u after EGD and colonoscopy Taking omeprazole bid- dietary modification- Reviewed procedure report, path and recommendations EGD repeat already scheduled Bowels are fine- hemorrhoids flare- improved with rectal cream No nausea, vomiting, hematemesis, hematochezia fever chills PFSH Medical History (Updated 01/13/24 @ 11:28 by Rosaura Tolliver PA-C) Depression Arthritis Elevated cholesterol Rotator cuff arthropathy of left shoulder Surgical History Hx of colonoscopy History of esophagogastroduodenoscopy (EGD) Hx of shoulder surgery History of carpal tunnel surgery of right wrist Status post excision of lipoma History of appendectomy Family History Father Heart disease Past heart attack Mother Myocardial infarction Brother Myocardial infarction Son Scoliosis Social History Housing: House Alcohol intake: never Patient Tobacco Use Status: Former Tobacco user Quit Date: 2018 Tobacco use type: Cigarette e-Cigarette/Vaping Use: Never Used Second Hand Smoke Exposure: No Current occupational status: employed and unemployed Current occupation: right handed Cognitive needs: No Hearing needs: No Vision needs: No Review of Systems Const All systems reviewed & are unremarkable except as noted in HPI and below Physical Exam Vital Signs: Last Vital Signs Pulse 73 01/13/24 10:51 BP 131/66 01/13/24 10:51 BMI result Body Mass Index 36.6 Const General: cooperative, healthy appearing, comfortable and no acute distress Resp Effort & Inspection: normal respiratory effort and able to speak in complete sentences Skin General skin exam: no rashes or lesions noted Extrem General: Yes full ROM Psych Appearance: grossly normal Mental Status: mental status grossly normal Speech and movement: Normal speech and movement present Affect: Anxious affect present Attitude: cooperative Thought process: Normal thought process present Thought content: Normal thought content present Results Reviewed Results Reviewed: Gastrin level-< 15 Impression: * Inlet patch * Grade C esophagitis * Gastritis * Gastric ulcers * Duodenitis * Normal colon and terminal ileum mucosa * Diverticulosis * Internal and external hemorrhoids Recommendations * Follow biopsy results. Our office will call or send a letter with results within 7-10 days. * A gastrin level is being sent out today (pt already fasting for procedures and not on PPI) * Start Omeprazole 20mg BID x 8 weeks and then once daily * Avoid NSAIDs and smoking * Repeat EGD in 2-3 months to ensure healing of esophagitis and gastric ulcers * Repeat colonoscopy in 10 years for asymptomatic colorectal cancer screening donald: Antoinette Canela Age/Sex: 58/F Attending: Sonia Whyte MD : 1965 Submitted by: Sonia Whyte MD Copies to: Issac Cabrera PA-C MR #: [id number] Status: [facility] Collected: 12/16/23 Location: [facility] Received: 12/17/23 Diagnosis A. Duodenum, biopsy: Chronic/non-specific duodenitis. B. Gastric antrum, biopsy: Gastric antral mucosa with congestion and minimal chronic inactive gastritis; negative for H pylori, intestinal metaplasia and dysplasia. C. Stomach, biopsy: Gastric body mucosa with minimal chronic inactive gastritis; negative for H pylori, intestinal metaplasia and dysplasia. Clinical History Pre-Op Dx: Rectal bleeding, GERD Post-Op Dx: Upper: gastritis, gastric ulcer, hiatal hernia, esophagitis grade C, inlet patch; Lower: diverticulosis, hemorrhoids Microscopic Description Microscopic sections reviewed. Immunostains for H. pylori on B and C are negative. AB/PAS on A is positive for evidence of chronic injury. AB/PAS on B and C are negative for intestinal metaplasia. Controls stain appropriately. Material Received A. Bx duodenum (r/o duodenitis) B. Bx antrum C. Bx of stomach Gross Description Received in 3 parts. Part A: Received in formalin labeled ?duodenum bx, rule out duodenitis? are 2 pa le, ann-pires irregular tissue fragments measuring 0.2 and 0.3 cm, submitted in toto in a cassette labeled A. Part B: Received in formalin labeled ?bx antrum? are 4 ann-pires irregular tissue fragments ranging from 0.15-0.3 cm, submitted in toto in a cassette labeled B. Part C: Received in formalin labeled ?bx body of stomach? is a 0.35 cm pires rectangular tissue fragment, submitted in toto in a cassette labeled C. CEDS Patient: Antoinette Canela Age/Sex: 58/F MR#: [id number] Page 1 of 2 Assessment & Plan Assessment & Plan (1) Esophagitis: Code(s): K20.90 - Esophagitis, unspecified without bleeding Category: Medical Plan: Continue omeprazole b.i.d. EGD as planned (2) Diverticulosis of colon: Code(s): K57.30 - Diverticulosis of large intestine without perforation or abscess without bleeding Category: Medical Plan: ER protocol (3) Hemorrhoids: Comment: HFD Cont rectal cream Code(s): K64.9 - Unspecified hemorrhoids Category: Medical Plan: Ref surg for hemorrhoid Plan Continue omeprazole b.i.d. Follow through with EGD scheduled Diverticulosis/diverticulitis ER protocol Orders: Referrals General Surgery Referral K64.9 - Unspecified hemorrhoids Patient Instructions: Continue omeprazole b.i.d. Follow through with EGD scheduled Diverticulosis/diverticulitis ER protocol Foods to avoid, nuts, seeds, corn popcorn-literature given 10 year colon screen- will place reminder Surgical referral for hemorrhoids Dr. Rees 02/02/2024 @ 14:00 Avoid straining Continue rectal cream Encouraged to call questions or concerns Coding Level of Care Code Est Pt Level 3 (52364) Diagnoses Esophagitis K20.90 Diverticulosis of colon K57.30 Hemorrhoids K64.9 Time Spent (min) 30
[2024-01-13 10:51] VITALS: BP 131/66; PULSE 73; BMI 36.6
== END 2024-01-13 12:33 | disposition home or self-care (01) ==
PROVIDERS: PCP Physician Assistant; Visit Provider Physician Assistant
DX: K20.90 Esophagitis, unspecified without bleeding (principal); K57.30 Diverticulosis of large intestine without perforation or abscess without bleeding; K64.9 Unspecified hemorrhoids
CPT/HCPCS: 99213

== ENCOUNTER → 2024-01-13 10:31 | Outpatient (BNVA) | payer OTHER, SELFPAY | PROVIDERS: PCP Physician Assistant; Visit Provider Physician Assistant | DX: K20.90 Esophagitis, unspecified without bleeding (principal); K57.30 Diverticulosis of large intestine without perforation or abscess without bleeding; K64.9 Unspecified hemorrhoids | CPT/HCPCS: 99212 ==

== ENCOUNTER 2024-01-13 15:59 | Outpatient (AMB) | payer OTHER, SELFPAY ==
--- NOTE | 2024-01-13 16:07 | MHC.PC.OV ---
Vital Signs 01/13/24 16:12 Height 5 ft 6 in Weight 226 lb BMI 36.5 BP 112/56 L Blood Pressure Location Rt brachial Position Sitting Pulse 78 Pulse Source Pulse Oximeter Pulse Oximetry (%) 96 Oxygen Delivery Method Room Air Intake Visit Reasons: Physical Exam Intake Note: Patient is here today for a physical. Freight Representative Required: No Accompanied by: Self / Same As Patient Allergies No Known Allergies Allergy (Verified 01/13/24 16:34) Medication List - Last Reconciled 01/13/24 by Issac Cabrera PA-C atorvastatin 10 mg PO DAILY blood pressure test kit-large As directed bupropion HCl SR 150 mg PO BID 90 days cholecalciferol (vitamin D3) (Vitamin D3) 50 mcg PO DAILY hydrocortisone 2.5% (Proctozone-HC) 1 appl [place] BID PRN hydroxyzine HCl 50 mg (2 x 25 mg) PO BEDTIME 30 days multivitamin 1 tab PO DAILY omeprazole 20 mg PO BID 8 weeks Tobacco use date assessed: 11/03/23 Dental Screening Dental Screen Date: 01/13/24 Did you have a dental visit in the last 12 months?: Yes Did you have a dental problem in the last 6 months where you did not have access to dental care?: No Was dental information given to patient?: Patient has dentist HPI Physical Exam HPI Details Patient is a 58 y/o here today for a routine annual physical. 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 .. Hyperlipidemia: Lipid panels have been stable, continues on low potency statin. Will recheck fasting lipid panel to assure appropriate total cholesterol and LDL. .. Generalized anxiety/major depressive disorder: For the most part has been anxiety and depression fairly well controlled on current dose of bupropion. Does have some situational anxiety as of late due to some family issues. She is interested in restarting hydroxyzine for sleep as she has been having trouble sleeping. Congenital left shoulder malformation: Has had MRI for her left shoulder showing high riding humoral head. She has seen clinical rehabilitation specialist whom does not believe surgical treatment will help overall. Did have 2nd opinion in [facility] and has gotten CT imaging of left shoulder showing severe osteoarthritis and high subluxation of the joint. She is awaiting a call back from was started orthopedic on whether or not they can help her with a shoulder replacement. She still has daily pain in that left shoulder depending on how much activity she does with her right upper extremity. She also does report some signs symptoms of left carpal or cubital tunnel syndrome. .. Obesity:? She does understand her BMI is over 30 and will try to be more physically active and adapt to better eating habits to reduce her weight. .. Colon cancer screening: Colonoscopy done in November of 2023, normal repeat 10 years, Endoscopy showing ulcerations, started on PPI therapy b.i.d.. Vaccines: Up-to-date with COVID vaccine will considering tetanus [facility] Medical History Depression Arthritis Elevated cholesterol Rotator cuff arthropathy of left shoulder Surgical History Hx of colonoscopy History of esophagogastroduodenoscopy (EGD) Hx of shoulder surgery History of carpal tunnel surgery of right wrist Status post excision of lipoma History of appendectomy Family History Father Heart disease Past heart attack Mother Myocardial infarction Brother Myocardial infarction Son Scoliosis Social History (Updated 01/13/24 @ 16:38 by Issac Cabrera PA-C) Housing: House Alcohol intake: current Alcohol intake frequency: holidays/special occasions only Alcohol type: wine Patient Tobacco Use Status: Former Tobacco user Quit Date: 2018 Tobacco use type: Cigarette e-Cigarette/Vaping Use: Never Used Second Hand Smoke Exposure: No Current occupational status: employed and unemployed Current occupation: right handed Cognitive needs: No Hearing needs: No Vision needs: No Questionnaire Thrive Questionnaire Date Thrive assessed: 11/03/23 RADHA-7 AMB Questionnaire RADHA-7 Date RADHA - 7 assessed: 11/03/23 Source: Developed by Drs. Babar Rodriguez, Audelia Hernández, Nishant Silva and colleagues, with an educational cyril from [employer]. Review of Systems Const Denies body aches, Denies chills, Denies excessive sweating, Denies fatigue, Denies fever(s) and Denies headache(s) Eyes Denies blurry vision ENT Denies dysphagia, Denies vertigo, Denies dizziness, Denies headache(s), Denies hearing loss and Denies tinnitus Card Denies chest pain, Denies chest pain with activity, Denies syncope, Denies irregular heart rhythm and Denies dyspnea Resp Denies chest congestion, Denies cough, Denies hemoptysis, Denies dyspnea and Denies wheezing GI Denies abdominal pain, Denies melena, Denies hematochezia, Denies coffee ground emesis, Denies dysphagia, Denies diarrhea, Denies nausea and Denies vomiting Denies urinary frequency, Denies dysuria, Denies urinary hesitancy and Denies urinary urgency Musc Denies arthralgias, Denies limited range of motion, Denies muscle cramps and Denies muscle weakness Skin/Breast Denies rash and Denies skin ulcer Neuro Denies Abnormal speech present, Denies confusion, Denies vertigo, Denies dizziness, Denies syncope, Denies headache(s), Denies memory loss and Denies seizure-like activity Psych Denies anxiety, Denies confusion, Denies depression, Denies memory loss, Denies panic attacks and Denies paranoia Endo Denies excessive sweating, Denies fatigue, Denies flushing, Denies polydipsia and Denies polyuria Aller/Immun Denies wheezing Physical exam (Primary Care) Vital Signs: Last Vital Signs Pulse 78 01/13/24 16:12 BP 112/56 L 01/13/24 16:12 Pulse Ox 96 01/13/24 16:12 Oxygen Delivery Method Room Air 01/13/24 16:12 BMI result Body Mass Index 36.5 Tobacco/Smoking Status: Tobacco use Status Tobacco use date assessed 11/03/23 01/13/24 16:07 Patient Tobacco Use Status Former Tobacco user 01/13/24 16:38 Tobacco use type Cigarette 01/13/24 16:38 e-Cigarette/Vaping Use Never Used 01/13/24 16:38 Thrive Assessment: Date of Thrive Assessment Date Thrive assessed 11/03/23 01/13/24 16:07 Const General: cooperative, comfortable, no acute distress, alert and awake; No confusion Orientation/consciousness: oriented to person, oriented to place, patient oriented x3 and No confusion HENMT Head: Yes normocephalic Ears: external ears normal and TM's normal bilaterally Face and sinus: No sinus tenderness Mouth: Normal oral and palatal mucosa present and tongue normal Teeth and gingiva: dentition normal and gingiva normal Throat: Yes posterior oropharynx normal, Yes tonsils normal and Yes uvula midline Eyes Conjunctivae: conjunctivae normal Sclerae: sclerae normal Pupils: Equal, round and reactive pupils present EOM: EOMs intact bilaterally Direct Ophthalmoscopy: No no photophobia Neck Neck: Yes no lymphadenopathy, No tender and Yes no JVD Thyroid: Thyroid normal Carotids: no bruits Chest Chest palpation & inspection: no tenderness Resp Effort & Inspection: normal respiratory effort, no audible wheezes, not labored and no stridor Auscultation: no crackles, no rales, no rhonchi and no wheezes Cardio Jugular venous distension: no JVD Rate: regular rate, not bradycardic and not tachycardic Rhythm: regular rhythm Bruits: no carotid bruits Peripheral pulses: Peripheral pulses 2+ throughout GI Inspection: Yes normal to inspection, No abdominal wall ecchymosis and No visible herniation Palpation (GI): Soft to palpation, nontender, no guarding, not rigid and No hepatosplenomegaly present Auscultation: normoactive bowel sounds General: Yes no CVA tenderness Back/Spine/Pelvis Back: no CVA tenderness and No back tenderness Cervical Spine: cervical ROM normal Thoracic/Lumbar Spine: thoracic and lumbar spine normal to inspection, straight leg raise negative bilaterally, No thoraco-lumbar ROM limited and No lumbar spinal tenderness Skin Lesions: no lesions Rashes: no rashes Wounds: no wounds Neuro General: oriented to person, oriented to place, patient oriented x3, CN's II-XI intact bilaterally and No confusion Cranial nerves: Yes Equal, round and reactive pupils present and Yes Normal accommodation reflex present Cognition (Neuro): normal cognition Speech: No Abnormal speech present Gait exam (Neuro): Normal gait present Motor exam (neuro): 5/5 motor strength present throughout Extrem Other: LEFT SHOULDER: NOTABLE CONTRACTION IN THE LEFT SHOULDER AND UPPER ARM. VERY LIMITED RANGE OF MOTION DUE TO STIFFNESS AND PAIN. Right upper extremity: full ROM; no cyanosis Left upper extremity: full ROM; no cyanosis Right lower extremity: no edema Left lower extremity: no edema Psych Appearance: grossly normal Mental Status: mental status grossly normal Affect: normal affect Attitude: cooperative Thought process: Normal thought process present Assessment and Plan Assessment & Plan (1) Annual physical exam: Code(s): Z00.00 - Encounter for general adult medical examination without abnormal findings (2) HTN (hypertension): Code(s): I10 - Essential (primary) hypertension Qualifiers: Hypertension type: primary hypertension Qualified Code(s): I10 - Essential (primary) hypertension Plan: Patient's blood pressure acceptable today in office. She has been able to manage her blood pressure with lifestyle modifications. Goal blood pressures to remain below 140/90 Follow low salt diet and excercise. (3) HLD (hyperlipidemia): Code(s): E78.5 - Hyperlipidemia, unspecified Qualifiers: Hyperlipidemia type: mixed hyperlipidemia Qualified Code(s): E78.2 - Mixed hyperlipidemia Plan: Continue on atorvastatin. Goal LDL to remain below 130 Follow low-cholesterol diet. 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 use of [id number] analgesics. (5) Obese: Code(s): E66.9 - Obesity, unspecified Qualifiers: Body mass index: BMI 37.0-37.9 Obesity classification: adult class 2 (BMI 35 - 39.9) Obesity type: due to excess calories Serious obesity comorbidity presence: without serious comorbidity Qualified Code(s): E66.09 - Other obesity due to excess calories; Z68.37 - Body mass index [BMI] 37.0-37.9, adult Plan: Patient does understand her BMI is over 30 will work on trying to be more physically active and adapting to better eating habits to reduce her weight (6) Esophagitis: Code(s): K20.90 - Esophagitis, unspecified without bleeding Plan: Patient recently has gotten a upper endoscopy which did show esophagitis and gastritis. She has been started on PPI therapy. (7) Left carpal tunnel syndrome: Code(s): G56.02 - Carpal tunnel syndrome, left upper limb Plan: Patient does report having left hand and wrist pain and numbness depending on how much physical activity she does with the right upper extremity. Concerns here for a neuropathy. She would likely benefit from getting an EMG to evaluate for cubital tunnel or carpal tunnel syndrome. Orders: Orders NE electromyogram (EMG) 01/13/24 G56.02 - Carpal tunnel syndrome, left upper limb Varicella IgG Antibody 01/15/24 Z78.9 - Other specified health status Referrals Orthopedics Referral G56.02 - Carpal tunnel syndrome, left upper limb Medications: Refilled cholecalciferol (vitamin D3) (Vitamin D3) 50 mcg PO DAILY 90 tabs 2RF Patient Instructions: Goals: LDL below 160. 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
[2024-01-13 16:12] VITALS: BP 112/56; PULSE 78; O2SAT 96; BMI 36.5
== END 2024-01-13 16:57 | disposition home or self-care (01) ==
PROVIDERS: PCP Physician Assistant; Visit Provider Physician Assistant
DX: Z00.00 Encounter for general adult medical examination without abnormal findings (principal); I10 Essential (primary) hypertension; E78.2 Mixed hyperlipidemia; Q74.0 Other congenital malformations of upper limb(s), including shoulder girdle; E66.09 Other obesity due to excess calories; Z68.37 Body mass index [BMI] 37.0-37.9, adult; K20.90 Esophagitis, unspecified without bleeding; G56.02 Carpal tunnel syndrome, left upper limb
CPT/HCPCS: 99396

== ENCOUNTER 2024-01-15 09:47 | Outpatient (REF) | payer OTHER, SELFPAY ==
[2024-01-15 10:37] LABS: Alanine Aminotransferase 22 U/L (0-31); Albumin Level 3.9 g/dL (3.5-5.0); Alkaline Phosphatase 76 U/L (39-117); Anion Gap 11 (12-20); Aspartate Amino Transferase 24 U/L (5-31); Bilirubin Total 0.4 mg/dL (0.0-1.0); Blood Urea Nitrogen 11 mg/dL (9-16); Calcium 9.4 mg/dL (8.4-10.2); Carbon Dioxide 30 mmol/L (22-29); Chloride 105 mmol/L (96-108); Cholesterol 166 mg/dL (<200); Estimated Glomerular Filt Rate 59; Glucose Fasting 104 mg/dL (60-99); HDL Cholesterol 42 mg/dL (>40); LDL Cholesterol Calculated 99 mg/dL (<100); Potassium 4.7 mmol/L (3.3-5.1); Sodium 141 mmol/L (135-145); Total Protein 6.8 g/dL (6.5-8.0); Triglycerides 128 mg/dL (<150)
== END 2024-01-15 09:48 | disposition home or self-care (01) ==
LOC: HO.LAB 09:47
PROVIDERS: PCP Physician Assistant; Visit Provider Physician Assistant
DX: E78.2 Mixed hyperlipidemia (principal); I10 Essential (primary) hypertension; Z78.9 Other specified health status
CPT/HCPCS: 36415; 80053; 80061; 86787

== ENCOUNTER 2024-03-21 09:38 | Outpatient (REF) | payer OTHER, SELFPAY ==
--- NOTE | 2024-03-21 09:37 | EMG_ITS ---
Left median and ulnar motor and sensory studies were performed. Left radial sensory and median lateral antecubital brachial sensory studies were performed and needle examination was performed. This study was difficult and limited because of her inability to move her left arm and shoulder and also an elbow. IMPRESSION: 1. [id number] left median neuropathy across carpal tunnel. 2. 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 MD DAVEY Richardson/VICKI / [id number]
== END 2024-03-21 09:39 | disposition home or self-care (01) ==
LOC: HO.NEURO 09:38
PROVIDERS: PCP Physician Assistant; Visit Provider Physician Assistant
DX: G56.02 Carpal tunnel syndrome, left upper limb (principal)
CPT/HCPCS: 95886; 95910

== ENCOUNTER 2024-05-18 06:55 | Day surgery (SDC) | payer OTHER, SELFPAY ==
--- NOTE | 2024-05-17 08:52 | P.CONAN_ITS ---
Documented by User: Eliza Mcleod NP 05/17/24 08:52 HPI - Anesthesia Eval Consult details Narrative: 59yo F for Upper Endoscopy PMFSH Active Problems Active Problems: All Active Problems Left carpal tunnel syndrome (Acute) Unknown varicella vaccination status (Acute) Hemorrhoids (Acute) Diverticulosis of colon (Acute) Esophagitis (Acute) Change in stool (Acute) Rectal bleeding (Acute) Pain in both knees (Acute) HTN (hypertension) (Acute) Globus sensation (Acute) Varicella vaccination status unknown (Acute) Annual physical exam (Acute) Hair thinning (Acute) Breast cancer screening (Acute) Colon cancer screening (Acute) Allergic rhinitis (Acute) Breast cancer screening (Acute) Obese (Acute) 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 (Acute) Annual physical exam (Acute) RADHA (generalized anxiety disorder) (Acute) HLD (hyperlipidemia) (Acute) Tendinopathy of left shoulder (Acute) Rotator cuff arthropathy of left shoulder (Acute) Past Medical History Medical History Depression Arthritis Elevated cholesterol Rotator cuff arthropathy of left shoulder Family History Family History Father Heart disease Past heart attack Mother Myocardial infarction Brother Myocardial infarction Son Scoliosis Family history of problems with anesthesia: No Surgical History Surgical History Hx of colonoscopy History of esophagogastroduodenoscopy (EGD) Hx of shoulder surgery History of carpal tunnel surgery of right wrist Status post excision of lipoma History of appendectomy History of Problems with Anesthesia: No Social History Social History (Updated 01/13/24 @ 16:38 by Issac Cabrera PA-C) Housing: House Are you a primary clinical care leader to a significant other at home: No Do you presently have visiting nurse or other home services: No Alcohol intake: current Alcohol intake frequency: holidays/special occasions only Alcohol type: wine Patient Tobacco Use Status: Former Tobacco user Tobacco use type: Cigarette e-Cigarette/Vaping Use: Never Used Second Hand Smoke Exposure: No Have you been hit, kicked, punched, or otherwise hurt by someone within the past year? If so, by whom?: No Advance Directives: No Advance Directives Information Provided: Yes Recently lost weight without trying: No Nutrition Risks: No Nutritional Risk Current occupational status: employed and unemployed Current occupation: right handed Cognitive needs: No Hearing needs: No Vision needs: No Meds Allergies Allergy/AdvReac Type Severity Reaction Status Date / Time No Known Allergies Allergy Verified 01/13/24 16:34 Home Medications ?Medication ?Instructions ?Recorded ?Confirmed ?Last Taken ?Type multivitamin 1 tab PO DAILY 07/26/23 01/13/24 Unknown History Assessment and Plan Assessment Anesthesia Assessment: Chart Reviewed Final Anesthetic Review Family History of Problems with Anesthesia: No History of Problems with Anesthesia: No Documented by User: Horace Caceres MD 05/18/24 08:22 [facility] Past Medical History Medical History Depression Arthritis Elevated cholesterol Rotator cuff arthropathy of left shoulder Family History Family History Father Heart disease Past heart attack Mother Myocardial infarction Brother Myocardial infarction Son Scoliosis Surgical History Surgical History Hx of colonoscopy History of esophagogastroduodenoscopy (EGD) Hx of shoulder surgery History of carpal tunnel surgery of right wrist Status post excision of lipoma History of appendectomy Social History Social History (Updated 01/13/24 @ 16:38 by Issac Cabrera PA-C) Housing: House Are you a primary clinical care leader to a significant other at home: No Do you presently have visiting nurse or other home services: No Alcohol intake: current Alcohol intake frequency: holidays/special occasions only Alcohol type: wine Patient Tobacco Use Status: Former Tobacco user Tobacco use type: Cigarette e-Cigarette/Vaping Use: Never Used Second Hand Smoke Exposure: No Have you been hit, kicked, punched, or otherwise hurt by someone within the past year? If so, by whom?: No Advance Directives: No Advance Directives Information Provided: Yes Recently lost weight without trying: No Nutrition Risks: No Nutritional Risk Current occupational status: employed and unemployed Current occupation: right handed Cognitive needs: No Hearing needs: No Vision needs: No Meds Allergies Allergy/AdvReac Type Severity Reaction Status Date / Time No Known Allergies Allergy Verified 01/13/24 16:34 Home Medications ?Medication ?Instructions ?Recorded ?Confirmed ?Last Taken ?Type multivitamin 1 tab PO DAILY 07/26/23 01/13/24 Unknown History Exam Airway Mallampati Class: II TM Dist: <=3cm Neck ROM: Full Denture: Upper and Lower Heart: ok Lungs: ok Assessment and Plan Assessment Anesthesia Assessment: Anesthesia Plan Discussed Final Anesthetic Review NPO: Yes ASA Class: II Final Preanesthetic Review: No Changes in Pt Med Stat, Meds/Allgs Chart Reviewed, Consent Obtained/Reviewed and Anes Risks/Benef Reviewed Patient Risk: Intermediate Procedure Risk: Intermediate Anesthetic Plan Anesthetic Plan: Agree w/ Assess. and Plan and TIVA Disposition: Standard PACU
[2024-05-18 07:05] VITALS: BMI 37.6
[2024-05-18 07:27] VITALS: BP 139/48; PULSE 73; RESP 18; TEMP 36.7; O2SAT 96; BMI 37.6
[2024-05-18] MEDS: Lactated Ringers 1,000 ML 100 ML IVCONT (07:34)
--- NOTE | 2024-05-18 08:47 | MHC.SHP ---
Pre-Procedural Eval Section A - 24 Hr Update-Section A only Date of Service: 05/18/24 Section B - Complete if H&P > 30 days Chief Complaint: History of esophagitis Details of Present Illness: Rotator cuff arthropathy of left shoulder Surgical History Status post excision of lipoma History of appendectomy Present Medications: see Short Stay Collaborative assessment Allergies: Allergies Allergy/AdvReac Type Severity Reaction Status Date / Time No Known Allergies Allergy Verified 01/13/24 16:34 Review of Systems Review of Systems Comment: Ten point ROS as previously documented Exam Exam Comment: Gen appear: No acute distress HEENT: no icterus Chest: No overt resp distress Abd: soft, nontender, nondistended Psych: Stable affect, answering questions appropriately Neuro: A/Ox3 noted to move all extremities spontaneously Ext: no peripheral edema Plan Diagnosis/Plan: Unchanged I have reviewed the history and physical and performed a pertinent physical examination on my patient. No changes have occurred unless specified. Time Spent With Patient Time: Total time managing care of this patient today ____ minutes.
--- NOTE | 2024-05-18 08:48 | P.OP_ITS ---
Operative Note Operative Note Date of Service: 05/18/24 Narrative: Procedure: Esophagogastroduodenoscopy Endoscopist: Sonia Whyte MD Indication: Esophagitis and gastric ulcers Anesthesia Provider: Dr Horace Caceres Anesthesia Type: MAC ?? EGD Procedure:?? The procedure, indications, preparation and potential complications were reviewed with the patient, who indicated understanding and gave written informed consent to proceed. A physical exam was performed. The endoscope was introduced through the mouth, and advanced to the second part of duodenum. The mucosa was carefully examined on slow withdrawal of the endoscope. The patient tolerated the procedure well. There were no immediate complications.? ? EGD Findings:? * Esophagus:? Normal mucosa noted in the entire esophagus. The Z line was at 37 cm. Lower esophagus forceps biopsies were obtained. * Stomach:? Normal mucosa was noted in the stomach. There was small amount of semi solid food in the fundus obscuring complete visualization but no normal mucosa was noted in the remaining stomach. Retroflexion was performed in the cardia. Random gastric biopsies were taken to rule out H Pylori infection. * Duodenum:? Normal mucosa was noted in the whole of the examined duodenum. ? EGD Impressions:? * Normal esophagus (biopsy) * Food in stomach * Normal duodenum (biopsy) ?? Recommendations:?? * Follow biopsy results. Our office will call or send a letter with results within 7-10 days. * Continue PPI therapy. * Avoid NSAIDs * Consider GES if sx of postprandial abd pain and bloating present Above has been reviewed with the patient.
[2024-05-18 09:12] VITALS: BP 108/56; PULSE 72; RESP 18; TEMP 36.2; O2SAT 90
[2024-05-18 09:27] VITALS: BP 120/45; PULSE 68; RESP 18; O2SAT 97
[2024-05-18 09:42] VITALS: BP 138/67; PULSE 64; RESP 18; TEMP 36.4; O2SAT 98
== END 2024-05-18 10:04 | disposition home or self-care (01) ==
PROVIDERS: PCP Physician Assistant; Visit Provider Internal Medicine
PROC: 0DJ08ZZ Inspection of Upper Intestinal Tract, Via Natural or Artificial Opening Endoscopic (ICD-10-PCS; CPT 43235; principal; 2024-05-18 08:30)
DX: K20.90 Esophagitis, unspecified without bleeding (principal); Z87.11 Personal history of peptic ulcer disease; T18.2XXA Foreign body in stomach, initial encounter; W44.F3XA Food entering into or through a natural orifice, initial encounter; F32.A Depression, unspecified; E78.00 Pure hypercholesterolemia, unspecified; Z79.899 Other long term (current) drug therapy; Z98.890 Other specified postprocedural states; Z87.891 Personal history of nicotine dependence; Y93.89 Activity, other specified; Y92.9 Unspecified place or not applicable; Y99.8 Other external cause status; T18.120A Food in esophagus causing compression of trachea, initial encounter
CPT/HCPCS: 43239; 88305; 88313; 88342; J2704

== ENCOUNTER → 2024-05-18 06:55 | Outpatient (BNV) | payer OTHER, SELFPAY | PROVIDERS: PCP Physician Assistant; Visit Provider Internal Medicine | DX: K20.90 Esophagitis, unspecified without bleeding (principal); K25.9 Gastric ulcer, unspecified as acute or chronic, without hemorrhage or perforation | CPT/HCPCS: 43239 ==

== ENCOUNTER → 2024-07-12 09:29 | Outpatient (REF) | payer OTHER, SELFPAY ==
--- NOTE | ~2024-07-12 | NM_ITS ---
EXAMINATION: RADIONUCLIDE SOLID FOOD GASTRIC EMPTYING 4-HOUR STUDY CLINICAL INFORMATION: Unspecified abdominal pain. COMPARISON: None. TECHNIQUE: A standard meal consisting of 4 oz of Egg Beaters brand tagged with 850 microcuries Tc-99m Sulfur Colloid, 8 oz water and 2 slices of toast with jelly was administered orally to the patient. Images were obtained using a dual head gamma camera in the anterior and posterior projections over of the stomach immediately post ingestion and at hourly intervals up to 4 hours post ingestion. The anterior and posterior counts at each time interval were averaged using the geometric mean and expressed as percentage of the immediate post ingestion counts. FINDINGS: There is good visualization of activity in the stomach immediately post ingestion. As the study progresses, there is delayed clearance of activity from the stomach and delayed visualization of progressively increasing small bowel activity. By the end of the study, there is significant retention noted in the stomach. Retention in the stomach at each time interval was: 1 hour 76% (normal 37%-90%) 2 hours 68% (normal 30%-60%) 3 hours 51% 4 hours 46% (normal 0%-10%) NM/NM gastric emptying study IMPRESSION: Abnormal grade 3 delayed 4 hour gastric emptying study. (For solid meal, rapid gastric emptying is less than 30% at 60 minutes. Delayed gastric emptying criteria is more than 60% remaining at 120 minutes or more than 10% at 240 minutes. The 4-hour value is the best discriminator of a normal or abnormal result). Gastric emptying study grading per JNMT Consensus Recommendations in 2008 (https://tech.snmjournals.org/content/36/1/44) Grade 1 (mild retention): 11-20% at 4h Grade 2 (moderate retention): 21-35% at 4h Grade 3 (severe retention): 36-50% at 4h Grade 4 (very severe retention): >50% retention at 4h Electronically signed by: Gema oByer MD 07/30/2024 01:08 PM [facility] [place]
== END ==
LOC: HO.NUCMED 09:29
PROVIDERS: PCP Physician Assistant; Visit Provider Internal Medicine
DX: R10.9 Unspecified abdominal pain (principal)
CPT/HCPCS: 78264; A9541

== ENCOUNTER 2024-08-11 11:00 | Outpatient (AMB) | payer OTHER, SELFPAY ==
--- NOTE | 2024-08-11 11:01 | MHC.OFFVIS ---
Intake Visit Reasons: GES results /Rosaura pt Intake Note: Antoinette is a rosaura patient that CC: She states that she gets cramps before having a BM to receive herself. She states she has diarrhea. First BM is normal and then she states her bowels get almost like a colonoscopy prep. Operations And Maintenance Manager Required: No Allergies No Known Allergies Allergy (Verified 01/13/24 16:34) HPI Comments Details: This is a 59 y.o F with PMH of HTN, HLD, depression who is following up after EGD. Voice telehealth. Prev [facility] [place] [facility] patient. Reports severe post prandial abd pain with nausea, bloating. Bowel movements are infrequent but once she does go has diarrhea. Had EGD in Apr which showed retained food in stomach. Based on clinical sx and EGD findings a GES was ordered to r.o delayed emptying that showed as below. EGD 05/18/24: Normal esophagus (biopsy) Food in stomach Normal duodenum (biopsy) A. Stomach, random, biopsy: Oxyntic mucosa with mild chronic inactive inflammation; no Helicobacter organisms seen. B. Esophagus, lower, biopsy: Squamous mucosa within normal limits; no inflammation seen. GES 07/12/24: There is good visualization of activity in the stomach immediately post ingestion. As the study progresses, there is delayed clearance of activity from the stomach and delayed visualization of progressively increasing small bowel activity. By the end of the study, there is significant retention noted in the stomach. Retention in the stomach at each time interval was: 1 hour 76% (normal 37%-90%) 2 hours 68% (normal 30%-60%) 3 hours 51% 4 hours 46% (normal 0%-10%) NM/NM gastric emptying study IMPRESSION: Abnormal grade 3 delayed 4 hour gastric emptying study. [facility] Medical History Depression Arthritis Elevated cholesterol Rotator cuff arthropathy of left shoulder Surgical History Hx of colonoscopy History of esophagogastroduodenoscopy (EGD) Hx of shoulder surgery History of carpal tunnel surgery of right wrist Status post excision of lipoma History of appendectomy Family History Father Heart disease Past heart attack Mother Myocardial infarction Brother Myocardial infarction Son Scoliosis Social History Housing: House Are you a primary adult day care worker to a significant other at home: No Do you presently have visiting nurse or other home services: No Alcohol intake: current Alcohol intake frequency: holidays/special occasions only Alcohol type: wine Patient Tobacco Use Status: Former Tobacco user Tobacco use type: Cigarette e-Cigarette/Vaping Use: Never Used Second Hand Smoke Exposure: No Current occupational status: employed and unemployed Current occupation: right handed Cognitive needs: No Hearing needs: No Vision needs: No Review of Systems Const All systems reviewed & are unremarkable except as noted in HPI and below Physical Exam Vital Signs: phone visit Telehealth Telehealth Telehealth Platform: Telephone Location of provider rendering services: practice address Location of patient: address on file Patient Identification confirmed using: Name, : Yes Telehealth method: voice only Patient verbally consented to treatment: Yes Patient verbally consented to billing insurance company: Yes Patient informed of any privacy concerns related to visit: Yes Minutes spent on Phone/Video with Pt.: 20 Assessment & Plan Assessment & Plan (1) Abdominal pain: Code(s): R10.9 - Unspecified abdominal pain Category: Medical (2) Gastroparesis: Code(s): K31.84 - Gastroparesis Category: Medical (3) Change in stool: Code(s): R19.5 - Other fecal abnormalities Category: Medical (4) Bloating: Code(s): R14.0 - Abdominal distension (gaseous) Category: Medical Plan PMH and med hx reviewed. No hx of recent viral illness, med change or travel noted. Pt not diabetic. Likely has idiopathic gastroparesis. REviewed that mainstay will be diet and lifestyle change. Meds considered but diarrhea prohibitive to Rx reglan or motegrity. Can consider antroduodenal motility study vs empiric balloon dil for pylorus vs botox down the road. Plan: - Small frequent meals - Low residue, low fat - Small particle diet - Stay upright 45-60 mins post meals - Since pts with gastroparesis also prone to GERD, cont PPI - Oven Worker referral for meal planning Follow up in 3 months Orders: Orders Complete Blood Count no Diff Today K31.84 - Gastroparesis Immunoglobulin A Today K31.84 - Gastroparesis Hemoglobin A1c Today K3 - Gastroparesis HU Antibody Today K3 - Gastroparesis SUNITA Reflex Titer and Pattern Today K3 - Gastroparesis Comprehensive Met. Panel Today K3 - Gastroparesis TSH reflex Free T4 Today K3 - Gastroparesis Transglutaminase IgA Today K3 - Gastroparesis Referrals Wellness Manager Nutrition Referral K3 - Gastroparesis, R10.9 - Unspecified abdominal pain Medications: Refilled omeprazole 20 mg PO DAILY 90 caps 1RF Coding Level of Care Code Tele Est Pt Level 4 (56834) Diagnoses Abdominal pain R10.9 Gastroparesis K3 Change in stool R19.5 Bloating R14.0
== END 2024-08-11 12:36 | disposition home or self-care (01) ==
LOC: HO.HGI 11:00
PROVIDERS: PCP Physician Assistant; Visit Provider Internal Medicine
DX: R10.9 Unspecified abdominal pain (principal); K31.84 Gastroparesis; R19.5 Other fecal abnormalities; R14.0 Abdominal distension (gaseous)
CPT/HCPCS: 99214

== ENCOUNTER → 2024-08-11 11:00 | Outpatient (BNVA) | payer OTHER, SELFPAY | PROVIDERS: PCP Physician Assistant; Visit Provider Internal Medicine ==

== ENCOUNTER 2025-01-16 16:00 | Outpatient (AMB) | payer OTHER, SELFPAY ==
--- NOTE | 2025-01-16 16:03 | MHC.PC.OV ---
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 Required: No Accompanied by: Self / Same As Patient Allergies No Known Allergies Allergy (Verified 01/16/25 16:10) Medication List - Last Reconciled 01/16/25 by Issac Cabrera PA-C atorvastatin 10 mg PO DAILY blood pressure test kit-large As directed bupropion HCl SR 150 mg PO BID 90 days cholecalciferol (vitamin D3) (Vitamin D3) 50 mcg PO DAILY hydrocortisone 2.5% (Proctozone-HC) 1 appl SC BID PRN hydroxyzine HCl 50 mg (2 x 25 mg) PO BEDTIME 30 days multivitamin 1 tab PO DAILY omeprazole 20 mg PO DAILY Tobacco use date assessed: 01/16/25 Dental Screening Dental Screen Date: 01/16/25 Did you have a dental visit in the last 12 months?: Yes Did you have a dental problem in the last 6 months where you did not have access to dental care?: No Was dental information given to patient?: Patient has dentist HPI annual exam HPI Details Patient is a 59 y/o here today for a routine annual physical. 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 Concern--> has been experiencing some increasing lower back pain without radiculopathy. She reports certain movements of her torso causes her back to have increasing pain. She is interested in physical therapy and x-ray as in his show evaluation. .. Hyperlipidemia: Lipid panels have been stable, continues on low potency statin. Will recheck fasting lipid panel to assure appropriate total cholesterol and LDL. .. Generalized anxiety/major depressive disorder: For the most part has been anxiety and depression fairly well controlled on current dose of bupropion. Does have some situational anxiety as of late due to some family issues. She is interested in restarting hydroxyzine for sleep as she has been having trouble sleeping. Congenital left shoulder malformation: Has had MRI for her left shoulder showing high riding humoral head. She has seen psychological operations specialist whom does not believe surgical treatment will help overall. Did have 2nd opinion in [facility] and has gotten CT imaging of left shoulder showing severe osteoarthritis and high subluxation of the joint. She is awaiting a call back from was started orthopedic on whether or not they can help her with a shoulder replacement. She still has daily pain in that left shoulder depending on how much activity she does with her right upper extremity. She also does report some signs symptoms of left carpal or cubital tunnel syndrome. .. Obesity:? She does understand her BMI is over 30 and will try to be more physically active and adapt to better eating habits to reduce her weight. She admits she has not been too physically active. Did discuss perhaps giving a referral to medical weight management for medical weight loss though she is considering at this time. .. Colon cancer screening: Colonoscopy done in November of 2023, normal repeat 10 years, Endoscopy showing ulcerations, started on PPI therapy b.i.d.. mammo: needs MAmmo and Pap screening Vaccines: Up-to-date with COVID vaccine will considering tetanus, shingles and PCV PFSH Medical History Depression Arthritis Elevated cholesterol Rotator cuff arthropathy of left shoulder Surgical History Hx of colonoscopy History of esophagogastroduodenoscopy (EGD) Hx of shoulder surgery History of carpal tunnel surgery of right wrist Status post excision of lipoma History of appendectomy Family History Father Heart disease Past heart attack Mother Myocardial infarction Brother Myocardial infarction Son Scoliosis Social History Housing: House Are you a primary animal care specialist to a significant other at home: No Do you presently have visiting nurse or other home services: No Alcohol intake: current Alcohol intake frequency: holidays/special occasions only Alcohol type: wine Patient Tobacco Use Status: Former Tobacco user Tobacco use type: Cigarette e-Cigarette/Vaping Use: Never Used Second Hand Smoke Exposure: No service: No Current occupational status: employed and unemployed Current occupation: right handed Cognitive needs: No Hearing needs: No Vision needs: No Questionnaire PHQ-9 Over the last 2 weeks, how often have you been bothered by any of the following problems? 1. Little interest or pleasure in doing things: not at all 2. Feeling down, depressed, or hopeless: not at all 3. Trouble falling or staying asleep, or sleeping too much: not at all 4. Feeling tired or having little energy: not at all 5. Poor appetite or overeating: not at all 6. Feeling bad about yourself - or that you are a failure or have let yourself or your family down: not at all 7. Trouble concentrating on things, such as reading the newspaper or watching television: not at all 8. Moving or speaking so slowly that other people could have noticed. Or the opposite - being so fidgety or restless that you have been moving around a lot more than usual: not at all 9. Thoughts that you would be better off or of hurting yourself in some way: not at all Total score: 0 Depression Screening Interpretation: Negative Depression Screening Done: Yes 34141 - PHQ-9 Billing: Yes Source: Developed by Drs. Babar Rodriguez, Audelia Hernández, Nishant Silva and colleagues, with an educational cyril from [employer]. Thrive Questionnaire Date Thrive assessed: 01/16/25 I am a: Patient What is your living situation today?: I have a steady place to live Within the past 12 months, did the food you bought not last and you didn't have the money to get more?: Never true Within the past 12 months, did you worry whether your food would run out before you got money to buy more?: Never true Do you have trouble paying for medicines?: No Do you have trouble getting transportation to medical appointments?: No Do you have trouble paying your heating and electricity bill?: No Do you have trouble taking care of your child, family member or friend?: No Do you have trouble with day-to-day activities such as bathing, preparing meals, shopping, managing finances, etc.?: No Are you currently unemployed and looking for a job?: No Are you interested in more education?: No Please select the resources that you would like help with: None Currently or been in a relationship where the following occur: No concerns reported THRIVE Score: 0 AUDIT C Alcohol Use Questionnaire (AUDIT-C) 1. How often do you have a drink containing alcohol?: Monthly or less 2. How many drinks containing alcohol do you have on a typical day when you are drinking?: 1 or 2 3. How often do you have six or more drinks on one occasion?: Never Total Score: 1 RADHA-7 AMB Questionnaire RADHA-7 Date RADHA - 7 assessed: 01/16/25 Feeling nervous, anxious, or on edge: 0 = Not at all Not being able to stop or control worryin = Not at all Worrying too much about different things: 0 = Not at all Trouble relaxin = Not at all Being so restless that it is hard to sit still: 0 = Not at all Becoming easily annoyed or irritable: 0 = Not at all Feeling afraid as if something awful might happen: 0 = Not at all Total RADHA-7 score (0-4 normal; 5-9 mild; 10-14 moderate; 15-21 severe): 0 Source: Developed by Drs. Babar Rodriguez, Audelia Hernández, Nishant Silva and colleagues, with an educational cyril from [employer]. RADHA-7 Assessment Billing RADHA-7 Assessment Tool: RADHA-7 Assessment 72701 Review of Systems Const Denies body aches, Denies chills, Denies excessive sweating, Denies fatigue, Denies fever(s) and Denies headache(s) Eyes Denies blurry vision ENT Denies dysphagia, Denies vertigo, Denies dizziness, Denies headache(s), Denies hearing loss and Denies tinnitus Card Denies chest pain, Denies chest pain with activity, Denies syncope, Denies irregular heart rhythm and Denies dyspnea Resp Denies chest congestion, Denies cough, Denies hemoptysis, Denies dyspnea and Denies wheezing GI Denies abdominal pain, Denies melena, Denies hematochezia, Denies coffee ground emesis, Denies dysphagia, Denies diarrhea, Denies nausea and Denies vomiting Denies urinary frequency, Denies dysuria, Denies urinary hesitancy and Denies urinary urgency Musc Denies arthralgias, Denies limited range of motion, Denies muscle cramps and Denies muscle weakness Skin/Breast Denies rash and Denies skin ulcer Neuro Denies Abnormal speech present, Denies confusion, Denies vertigo, Denies dizziness, Denies syncope, Denies headache(s), Denies memory loss and Denies seizure-like activity Psych Denies anxiety, Denies confusion, Denies depression, Denies memory loss, Denies panic attacks and Denies paranoia Endo Denies excessive sweating, Denies fatigue, Denies flushing, Denies polydipsia and Denies polyuria Aller/Immun Denies wheezing Physical exam (Primary Care) Vital Signs: Last Vital Signs Temp 97.1 F 01/16/25 16:04 Pulse 78 01/16/25 16:04 BP 130/62 01/16/25 16:04 Pulse Ox 98 01/16/25 16:04 Oxygen Delivery Method Room Air 01/16/25 16:04 BMI result Body Mass Index 36.5 Tobacco/Smoking Status: Tobacco use Status Tobacco use date assessed 01/16/25 01/16/25 16:08 Patient Tobacco Use Status Former Tobacco user 01/16/25 16:05 Tobacco use type Cigarette 01/16/25 16:05 e-Cigarette/Vaping Use Never Used 01/16/25 16:05 PHQ-9: PHQ-9 Score PHQ-9: Total score 0 01/16/25 16:15 Depression Screening Interpretation: Negative Thrive Assessment: Date of Thrive Assessment Date Thrive assessed 01/16/25 01/16/25 16:10 Currently or been in a relationship where the following occur: No concerns reported Const General: cooperative, comfortable, no acute distress, alert and awake; No confusion Orientation/consciousness: oriented to person, oriented to place, patient oriented x3 and No confusion HENMT Head: Yes normocephalic Ears: external ears normal and TM's normal bilaterally Face and sinus: No sinus tenderness Mouth: Normal oral and palatal mucosa present and tongue normal Teeth and gingiva: dentition normal and gingiva normal Throat: Yes posterior oropharynx normal, Yes tonsils normal and Yes uvula midline Eyes Conjunctivae: conjunctivae normal Sclerae: sclerae normal Pupils: Equal, round and reactive pupils present EOM: EOMs intact bilaterally Direct Ophthalmoscopy: No no photophobia Neck Neck: Yes no lymphadenopathy, No tender and Yes no JVD Thyroid: Thyroid normal Carotids: no bruits Chest Chest palpation & inspection: no tenderness Resp Effort & Inspection: normal respiratory effort, no audible wheezes, not labored and no stridor Auscultation: no crackles, no rales, no rhonchi and no wheezes Cardio Jugular venous distension: no JVD Rate: regular rate, not bradycardic and not tachycardic Rhythm: regular rhythm Bruits: no carotid bruits Peripheral pulses: Peripheral pulses 2+ throughout GI Inspection: Yes normal to inspection, No abdominal wall ecchymosis and No visible herniation Palpation (GI): Soft to palpation, nontender, no guarding, not rigid and No hepatosplenomegaly present Auscultation: normoactive bowel sounds General: Yes no CVA tenderness Back/Spine/Pelvis Back: no CVA tenderness and No back tenderness Cervical Spine: cervical ROM normal Thoracic/Lumbar Spine: thoracic and lumbar spine normal to inspection, straight leg raise negative bilaterally, No thoraco-lumbar ROM limited and No lumbar spinal tenderness Skin Lesions: no lesions Rashes: no rashes Wounds: no wounds Neuro General: oriented to person, oriented to place, patient oriented x3, CN's II-XI intact bilaterally and No confusion Cranial nerves: Yes Equal, round and reactive pupils present and Yes Normal accommodation reflex present Cognition (Neuro): normal cognition Speech: No Abnormal speech present Gait exam (Neuro): Normal gait present Motor exam (neuro): 5/5 motor strength present throughout Extrem Right upper extremity: full ROM; no cyanosis Left upper extremity: full ROM; no cyanosis Right lower extremity: no edema Left lower extremity: no edema Psych Appearance: grossly normal Mental Status: mental status grossly normal Affect: normal affect Attitude: cooperative Thought process: Normal thought process present Immunizations pneumoc 20-fam conj-dip cr(PF) 0.5 mL IM syringe Performing Provider: Issac Cabrera PA-C [place] [facility] [place] [facility] Administered by: WENDI Sykes on 01/16/25 16:34 Dose Route Admin Location Dispensed Lot Number Expiration Date [facility] Senior [employer] Developer 0.5 mL IM Left Deltoid 0.5 mL [id number] 10/21/25 [employer] VIS Given Date VIS Provided VIS Publication Date 01/16/25 Single Vaccine 23 Eligibility Eligibility Date Funding Source Not [facility] Eligible 01/16/25 Private Coding Diagnoses Annual physical exam Z00.00 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 RADHA (generalized anxiety disorder) F41.1 Primary hypertension I10 Hypertension type: primary hypertension Cervical cancer screening Z12.4 Class 2 obesity E66.812 Chronic midline low back pain without sciatica M54.50; G89.29 Back pain laterality: midline Chronicity: chronic Sciatica presence: without sciatica Additional Codes RADHA-7 Assessment Billing - RADHA-7 Assessment Tool: RADHA-7 Assessment 60146 ([id number]) PHQ-9 - 94753 - PHQ-9 Billing: Yes ([id number]) Assessment & Plan Assessment & Plan (1) Annual physical exam: Code(s): Z00.00 - Encounter for general adult medical examination without abnormal findings Category: Medical Plan: As per HPI (2) 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 Has severe bone anomaly over left shoulder. (3) RADHA (generalized anxiety disorder): Code(s): F41.1 - Generalized anxiety disorder Category: Medical Plan: Patient reports her anxiety symptoms have been fairly well controlled with BuSpar 150 b.i.d.. (4) HTN (hypertension): Code(s): I10 - Essential (primary) hypertension Category: Medical Qualifiers: Hypertension type: primary hypertension Qualified Code(s): I10 - Essential (primary) hypertension Plan: Patient's blood pressure acceptable today in office. She has been able to manage her blood pressure without medication. Goal blood pressures to be below 140/90 (5) Cervical cancer screening: Code(s): Z12.4 - Encounter for screening for malignant neoplasm of cervix Category: Medical Plan: Patient willing to do Pap screening. Will refer to [facility] (6) Class 2 obesity: Code(s): E66.812 - Obesity, class 2 Category: Medical Plan: Patient's BMI today at 36. She does admit to not being too physically active and is going to join a gym pretty soon. We did discuss perhaps seeing weight management for GLP 1 weight reduction medication. (7) Lower back pain: Code(s): M54.50 - Low back pain, unspecified Category: Medical Qualifiers: Back pain laterality: midline Chronicity: chronic Sciatica presence: without sciatica Qualified Code(s): M54.50 - Low back pain, unspecified; G89.29 - Other chronic pain Plan: Suggested x-ray, possible physical therapy. Orders: Orders MM screening mammo BI Today Z12.31 - Encounter for screening mammogram for malignant neoplasm of breast Lipid Panel Today E78.2 - Mixed hyperlipidemia PT Evaluation and Treatment Today G89.29 - Other chronic pain, M51.9 - Unspecified thoracic, thoracolumbar and lumbosacral intervertebral disc disorder, M54.50 - Low back pain, unspecified Comprehensive [place]. 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
[2025-01-16 16:04] VITALS: BP 130/62; PULSE 78; TEMP 36.2; O2SAT 98; BMI 36.5
== END 2025-01-16 16:46 | disposition home or self-care (01) ==
LOC: HO.HMCH 16:01
PROVIDERS: PCP Physician Assistant; Visit Provider Physician Assistant
DX: Z23 Encounter for immunization (principal)

== ENCOUNTER → 2025-01-16 16:00 | Outpatient (BNVA) | payer OTHER, SELFPAY | PROVIDERS: PCP Physician Assistant; Visit Provider Physician Assistant | DX: Z00.00 Encounter for general adult medical examination without abnormal findings (principal); Z23 Encounter for immunization; F41.1 Generalized anxiety disorder; I10 Essential (primary) hypertension; E66.812 Obesity, class 2; Z68.36 Body mass index [BMI] 36.0-36.9, adult; M54.50 Low back pain, unspecified; G89.29 Other chronic pain; Q74.0 Other congenital malformations of upper limb(s), including shoulder girdle | CPT/HCPCS: 90471; 90677; 96127; 99396 ==

== ENCOUNTER 2025-08-18 10:08 | Outpatient (REF) | payer OTHER, SELFPAY ==
--- OUTSIDE RECORDS SUMMARY | 2025-08-18 10:13 | XMS_ITS | Clinical Summary ---
Author Organization [facility] Address [address] [place] [address] Care Team Providers Care Health Education Teacher Name Role Phone Jude Teixeira Primary Care Provider [phone] Allergies No known active allergies Medications hydrOXYzine HCL (ATARAX) 25 mg tablet TAKE 1 TO 2 TABLETS BY MOUTH AT BEDTIME NEEDED 03/15/2020 Active fluticasone propionate (FLONASE) 50 mcg/actuation nasal spray SPRAY 1 SPRAY INTO EACH NOSTRIL EVERY DAY 06/12/2020 Active Vitamin D3 50 mcg (2,000 unit) tablet Take 1 tablet by mouth daily. 10/21/2020 Active buPROPion SR (WELLBUTRIN SR) 150 mg tablet Take 150 mg by mouth 2 times a day. 10/14/2020 Active atorvastatin (LIPITOR) 10 mg tablet Take 10 mg by mouth daily. 10/24/2020 Active Active Problems No known active problems Social History Tobacco Use Types Packs/Day Years Used Date Smoking Tobacco: Never Assessed Comments Unknown Sex and Gender Information Value Date Recorded Sex Assigned at Not on file Legal Sex Female 2:46 PM EST Gender Identity Not on file Sexual Orientation Not on file Plan of Treatment Health Maintenance Due Date Last Done Comments Cervical Cancer Screening 1966 Cologuard 1966 Colon Cancer Screening 1966 Colonoscopy 1966 FOBT / Fit Test 1966 HIV Screening 1966 HPV and Pap Smear 1966 Pap Smear 1966 Sigmoidoscopy 1966 Hepatitis B Vaccines (1 of 3 - 19+ 3-dose series) 01/18 DTaP,Tdap,and Td Vaccines (1 - Tdap) 02/01/1988 Mammogram 2006 Pneumococcal Vaccine: 50+ Years (1 of 1 - PCV) 016 Zoster Vaccines (1 of 2) 02/01/2016 Alcohol/Substance Use Screening 09/20/2024 Influenza Vaccine (#1) 2025 Insurance [employer] Care Teams Health Education Teacher Relationship Specialty Start Date End Date Jude Teixeira [address] [place] [address] [place] [address] PCP - General 11/06/20
[2025-08-18 11:36] LABS: Hematocrit 44.3 % (37.0-47.0); Hemoglobin 14.5 g/dl (12.0-16.0); Mean Corpuscular HGB Conc 32.7 g/dl (31.0-35.0); Mean Corpuscular Hemoglobin 30.3 pg (27.0-33.0); Mean Corpuscular Volume 92.7 fL (80.0-98.0); NRBC Abs Auto 0.000 X10*3/uL (0.0-0.012); NRBC Pct Auto 0.0 /100WBC (0.0-0.2); Platelet Count 292 X10*3/uL (160-400); Red Blood Count 4.78 X10*6/uL (4.20-5.50); White Blood Count 7.0 X10*3/uL (4.8-10.8)
[2025-08-18 12:17] LABS: Alanine Aminotransferase 19 U/L (0-31); Albumin Level 4.2 g/dL (3.5-5.0); Alkaline Phosphatase 92 U/L (39-117); Anion Gap 13 (12-20); Aspartate Amino Transferase 26 U/L (5-31); Blood Urea Nitrogen 19 mg/dL (9-16); Calcium 9.7 mg/dL (8.4-10.2); Carbon Dioxide 26 mmol/L (22-29); Chloride 109 mmol/L (96-108); Cholesterol 199 mg/dL (<200); Estimated Glomerular Filt Rate 53; HDL Cholesterol 54 mg/dL (>40); Potassium 4.8 mmol/L (3.3-5.1); Sodium 143 mmol/L (135-145); Total Protein 7.1 g/dL (6.5-8.0); Triglycerides 151 mg/dL (<150)
== END 2025-08-18 10:09 | disposition home or self-care (01) ==
LOC: HO.LAB 10:08
PROVIDERS: PCP Physician Assistant; Visit Provider Physician Assistant
DX: E78.2 Mixed hyperlipidemia (principal)
CPT/HCPCS: 36415; 80053; 80061; 85027